=== PATIENT | male | born 1945 | race Caucasian/White ===

== ENCOUNTER 2023-12-23 06:08 | Inpatient (IN) | payer MEDICARE, OTHER, SELFPAY ==
--- NOTE | 2023-11-16 12:22 | CM ---
Patient is scheduled for an elective L THR on 12/23/23. Spoke with patient's prior to surgery via telephone. Introduced role of Orthopedic Navigator. Patient reports that she and patient live in a two story home. There is one step to enter and a
flight of steps to the second floor. There is a stair glide on the steps to the second floor which patient uses. He currently functions independently but has short term memory and processing difficulties (residual deficits from a prior CVA). He has
a cane and raised toilet seat. He was receiving services through [facility] at home at the time of our conversation. PCP is Dr. Kevyn Raygoza.
Discussed orthopedic program and post surgical plans. Reviewed anticipated length of stay and that goal is for patient to return home at discharge. Also reviewed additional DME he will need. She is in agreement with tentative plan and would like
patient to receive [facility]. She will be home with patient and can assist if needed.
Patient will complete online education.
Plan: Orthopedic Navigator will remain available to assist with the care of patient and will reassess discharge needs after surgery.
[2023-11-29 12:33] VITALS: BMI 32.6
[2023-11-29 14:29] LABS: Hematocrit 45.3 % (39.0-52.0); Hemoglobin 14.3 g/dL (13.0-18.0); Mean Corp Hgb Conc. 31.6 g/dL (33.0-37.0); Mean Corpuscular Hgb 28.8 pg (27.0-31.0); Mean Corpuscular Volume 91.1 fL (80.0-94.0); Mean Platelet Volume 10.1 fL (7.4-10.4); Platelet Count 259 10^3/uL (130-400); Red Blood Cell Count 4.97 10^6/uL (4.70-6.10); Red Cell Dist. Width 14.7 % (11.5-14.5); White Blood Cell Count 8.1 10^3/uL (4.8-10.8)
[2023-11-29 14:53] LABS: ALT (SGPT) 22 U/L (0-50); AST (SGOT) 33 U/L (17-59); Albumin 4.3 g/dl (3.5-5.0); Alkaline Phosphatase 93 U/L (38-126); Blood Urea Nitrogen 22 mg/dl (9-20); Calcium 9.8 mg/dl (8.4-10.2); Carbon Dioxide 27 mmol/L (22-30); Chloride 102 mmol/L (98-107); Estimated Creatinine Clearance 81 ml/min; Glucose 109 mg/dl (70-99); Potassium 4.5 mmol/L (3.5-5.1); Sodium 140 mmol/L (135-145); Total Bilirubin 0.6 mg/dl (0.2-1.3); Total Protein 6.8 g/dl (6.3-8.2); eGFR > 60.00
[2023-11-29 14:54] LABS: Glycohemoglobin (HgbA1c) 6.4 % (4.0-5.6)
[2023-11-29 16:28] VITALS: BMI 32.6
[2023-12-23] VITALS (23 sets, daily range): BP systolic 95–141; BP diastolic 61–91; PULSE 97; O2SAT 96; BMI 32.6
[2023-12-23] MEDS: NORMOSOL-R 1000 IV ×2 (08:51→16:11)
[2023-12-23] MEDS: TYLENOL 650 MG PO ×2 (08:52→21:49)
[2023-12-23] MEDS: CELEBREX 200 MG PO (08:52)
--- NOTE | 2023-12-23 11:59 | OR.RPT ---
Operative Report
Operative Report
Orthopaedic Surgery Operative Note
DATE OF OPERATION: 12/23/2023
PREOPERATIVE DIAGNOSES: Osteoarthritis, left hip
POSTOPERATIVE DIAGNOSES: Same
OPERATION PERFORMED: Left total hip arthroplasty.
SURGEON: Lucian Koehler MD
BEEF BREAKER: Kristin Ewing PA-C who helped with patient and limb positioning and retraction
ANESTHESIA: General after attempted spinal
COMPLICATIONS: None.
ESTIMATED BLOOD LOSS: 50 mL.
DRAINS: None
SPECIMEN: None
FINDINGS: Advanced articular cartilage wear on the femoral head and acetabulum.
IMPLANTS:
Ruperto Trilogy Acetabular Shell, cluster hole, size 56
Ruperto Trilogy Highly Crosslinked PE Liner, neutral
Ruperto M/L Taper femoral stem, size 12.5 with standard neck length and standard offset
Biolox Ceramic Head, size 36mm +0
INDICATIONS: The patient presented to my office with debilitating left hip pain due to osteoarthritis. We reviewed the natural history of this problem, as well as the risks, benefits, and alternatives of various treatment options. The patient
exhausted all nonoperative treatment options and wished to proceed with hip replacement surgery. The patient understood the risks which included, but were not limited to, bleeding, infection, failure to relieve pain, more pain than preop, damage to
blood vessels and nerves, need for reoperation, mechanical failure of the implants, wound healing problems, stiffness, instability, blood clot, pulmonary embolism, myocardial infarction, pneumonia, arrhythmia, CVA, and . The patient accepted
these risks and wished to proceed. All questions were answered, and informed consent was obtained.
PROCEDURE IN DETAIL: The patient was identified in the preoperative holding area. The left hip was identified as the operative site. The patient was taken in the operating room and transferred to the operative table. General anesthesia was
performed. IV antibiotics and tranexamic acid were administered. The patient was placed in the lateral position with Stulberg hip positioners. Axillary roll was placed. The down leg was well padded. All bony prominences were well padded. The
operative limb was prepped and draped in the usual sterile fashion.
Time out was performed. A posterolateral approach to the hip was used. The skin incision was centered over the greater trochanter. This was taken down sharply through subcutaneous tissues. Meticulous hemostasis was achieved throughout the case with
electrocautery. We split the fascia nena in line with skin incision. I split the gluteus jake bluntly. We cauterized all crossing vessels as we split it. I palpated the sciatic nerve and made sure it was well posterior in the operative field. It
was protected throughout the case.
I performed a partial bursectomy to identify the short external rotators. The gluteus medius and minimus were identified and retracted anteriorly. I incised the piriformis tendon and conjoint tendon at their insertions. These were tagged for later
repair. I then performed a trapezoidal capsulotomy. The edges were tagged for later repair. I referenced the cut edge of the capsular flap to 2 fixed points on the greater trochanter for assistance with recreation of limb length and offset. I then
dislocated the hip posteriorly. I performed a femoral neck osteotomy approximately 5 mm above the lesser trochanter, as per preoperative templating. The femoral head measured 51 mm in outer diameter. The distance between the neck cut and center of
the femoral head was measured to be 37.5mm. I placed a curve hohmann retractor over the anterior lip of the acetabulum between the labrum and the anterior hip capsule. A second retractor was placed inferiorly just distal to the transverse acetabular
ligament. Circumferential view of the acetabulum was achieved. I incised the labrum and pulvinar with electrocautery. I started with a 51 mm reamer and reamed down to the medial wall. I then sequentially reamed up to a 55mm reamer. This gave a nice
bed of bleeding bone with excellent column support anteriorly and posteriorly. I impacted the acetabular shell in approximately 40 degrees of abduction and 20 degrees of anteversion. I matched the anteversion of the transverse acetabular ligament. I
also made sure that the anterior rim of the socket was not proud of the anterior wall to minimize the chance of iliopsoas tendinitis. I confirmed the cup was well-seated. I then impacted a neutral liner and confirmed it was well seated with the
locking mechanism.
On the femoral side, I use a box osteotome to open the proximal starting point. I found the canal with a Charnley awl and a lateralizing reamer. I then used the Ruperto M/L taper broaches sequentially to prepare the femoral canal. The size 12.5 came
to a stop at the desired level and had excellent axial and rotational stability. We trialed with a trial ball head. The hip was taken through a complete range of motion. It was noted to be stable in extension without impingement. It was stable in
the position of sleep and in flexion with internal rotation. The limb length and offset were checked compared to the capsular flap and was appropriate. The measured length between the neck cut and center of the femoral head was 40mm.
I removed the trials. I impacted the femoral implant to match the [place] version. It had excellent axial and rotational stability. Trial ball head was placed, and I reduced the hip and took the hip through a complete range of motion. There was no
impingement in external rotation and extension. Position of sleep was stable. At 90 degrees of flexion and slight adduction, the hip could be internally rotated to 90 degrees with no subluxation. I palpated the sciatic nerve, which was tension free
and unharmed. Based on our capsular flap measurement, we had restored the offset and leg length. The trial ball head was removed, and the final ball head was impacted onto a clean and dry Reyes taper. The hip was reduced.
A dilute betadine soak was performed for approximately 3 minutes, and then the hip was copiously irrigated. I repaired the capsule, piriformis, and conjoint tendon with #2 Ethibond to drill holes in the greater trochanter. Local anesthetic was
injected. The fascia nena was closed with #1 PDS in running fashion. The subcutaneous tissues were closed with 2-0 PDS in running fashion. The skin was reapproximated with 3-0 Monocryl subcuticular suture. I placed a Prineo dressing followed by a
Mepilex Ag dressing. The patient awoke from anesthesia without difficulty. Sponge and instrument counts were correct x2 at the end of the case.
I was present and participated in the entire procedure. I checked leg length at the ankles after transfer on the bed which was equal. The patient was sent to the recovery room in stable condition.
Wes Koehler MD
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
[2023-12-23] MEDS: DILAUDID 0.25 MG IV ×2 (12:49→12:56)
--- NOTE | 2023-12-23 16:55 | PTCARENOTE ---
Pt received from the PACU via bed. Transport was w/o incident. Pt is AAOx3, HR irreg. Pt is afib on the monitor. HR 90's to low 100's. VSS, Pt is afebrile. Pt denies pain or nausea at this time. Right hip with Mepilex C/D/I, no drainage noted. Pt
instructed on plan of care, pt verbalized understanding of instructions. Call puentes is within reach.
[2023-12-23] MEDS: TYLENOL PO (19:54)
[2023-12-23] MEDS: SENOKOT PO (21:48)
[2023-12-23] MEDS: PROSCAR 5 MG PO (21:49)
[2023-12-23] MEDS: COLACE 100 MG PO (21:49)
[2023-12-23] MEDS: FLOMAX 0.400000000000000022 MG PO (21:49)
[2023-12-23] MEDS: ASPIR LOW (ENTERIC COATED) 81 MG PO (21:49)
[2023-12-23] MEDS: ZYRTEC 10 MG PO (21:50)
[2023-12-23] MEDS: LIPITOR 40 MG PO (21:50)
[2023-12-23] MEDS: EFFEXOR XR 75 MG PO (21:50)
[2023-12-23] MEDS: PEPCID 20 MG PO (21:50)
[2023-12-23] MEDS: ANCEF 5 IV (22:00)
[2023-12-23] MEDS: BACTROBAN 2% OINTMENT 1 APPLIC NASAL (22:10)
[2023-12-23] MEDS: XARELTO 10 MG PO (22:10)
[2023-12-24] VITALS (8 sets, daily range): BP systolic 108–154; BP diastolic 63–85; PULSE 104–117; O2SAT 94
[2023-12-24] MEDS: TYLENOL 650 MG PO ×6 (00:04→22:13)
[2023-12-24] MEDS: ANCEF 5 IV (03:41)
[2023-12-24] MEDS: ROXICODONE 2.5 MG PO (06:21)
[2023-12-24] MEDS: ASPIR LOW (ENTERIC COATED) 81 MG PO (08:38)
[2023-12-24] MEDS: COLACE 100 MG PO ×2 (08:38→20:39)
[2023-12-24] MEDS: SENOKOT 17.1999999999999993 MG PO (08:38)
[2023-12-24] MEDS: CARDIZEM CD 120 MG PO (08:39)
[2023-12-24] MEDS: VITAMIN D3 (cholecalciferol) 50 MCG PO (08:39)
--- NOTE | 2023-12-24 08:39 | CM ---
Addendum entered by Felicity Butler 12/24/23 14:40:
Patient is not medically cleared for discharge. Ena at [facility] notified and start of care changed to 12/25.
IMM reviewed and signed by patient's .
Original Note:
Reviewed chart and held rounds with PT, OT and nursing. Patient admitted as planned for elective L THR. Met with patient, his and daughter at bedside. Confirmed information previously obtained for assessment. Also discussed discharge plans. The
plan is for patient to return home at discharge. He will have support from his when he goes home. Reviewed VN services including start of care (tentatively 12/24), services to be ordered (PT, OT) and frequency/duration of services. They have had
services through [facility] and select them again.
Patient has a rolling walker, raised toilet seat with rails, stair glide, hip kit, firm cushion and a cane at home.
VN referral was completed and sent to [facility] through [employer] with request for start of care on 12/24. Script also faxed. Confirmation received of their ability to accept case. distribution clerk to fax discharge instructions to [facility] when complete. .
Patient will use [facility] for discharge prescriptions.
[2023-12-24] MEDS: BACTROBAN 2% OINTMENT 1 APPLIC NASAL ×2 (08:40→20:39)
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
[2023-12-24] MEDS: LIDOCAINE 4% PATCH 2 PATCH TOPICAL (09:55)
[2023-12-24] MEDS: NEURONTIN 200 MG PO ×3 (09:55→22:15)
[2023-12-24 10:55] LABS: Hematocrit 39.2 % (39.0-52.0); Hemoglobin 12.8 g/dL (13.0-18.0); Mean Corp Hgb Conc. 32.7 g/dL (33.0-37.0); Mean Corpuscular Hgb 28.8 pg (27.0-31.0); Mean Corpuscular Volume 88.3 fL (80.0-94.0); Mean Platelet Volume 9.9 fL (7.4-10.4); Platelet Count 248 10^3/uL (130-400); Red Blood Cell Count 4.44 10^6/uL (4.70-6.10); Red Cell Dist. Width 14.8 % (11.5-14.5); White Blood Cell Count 18.7 10^3/uL (4.8-10.8)
[2023-12-24 11:08] LABS: Blood Urea Nitrogen 21 mg/dl (9-20); Calcium 9.2 mg/dl (8.4-10.2); Carbon Dioxide 25 mmol/L (22-30); Chloride 106 mmol/L (98-107); Estimated Creatinine Clearance 90 ml/min; Glucose 147 mg/dl (70-99); Potassium 4.5 mmol/L (3.5-5.1); Sodium 138 mmol/L (135-145); eGFR > 60.00
--- NOTE | 2023-12-24 11:30 | W.PN.UPDATE ---
Update Note
Progress Note Update
Given high HRs in the setting of a fib with his h/o orthostasis, will consult Cardiology for further assistance in rate management.
EKG demonstrates a fib w/ RVR. HRs currently 100-120s at rest and up to 140s with activity.
He is currently asymptomatic and denies new complaints when asked.
Labs: WBC elevated at 18.7, likely in the setting of surgical stress and IV steroid use in OR yesterday. Will trend. As stated previously, pt is asymptomatic and afebrile.
All other labs WNL.
Will observe overnight on newly added Amiodarone. Surgeon updated.
Did discuss resumption of home Xarelto dosing with surgeon as well.
Original plan was to resume Xarelto 20 mg on POD 3.
Given his discharge is now likely tomorrow, he may go back on his home Xarelto dosing as early as tomorrow.
[2023-12-24] MEDS: ROXICODONE 5 MG PO (11:59)
--- NOTE | 2023-12-24 13:00 | PTCARENOTE ---
Patient heart rate this am on tele was 140-150. Anupama CARMEN made aware. Cardiology consulted and medications adjusted. Patient remains on tele.
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
[2023-12-24] MEDS: PACERONE 200 MG PO (13:22)
[2023-12-24] MEDS: XARELTO 10 MG PO (17:54)
[2023-12-24] MEDS: FLOMAX 0.400000000000000022 MG PO (17:54)
[2023-12-24] MEDS: SENOKOT PO (20:40)
[2023-12-24] MEDS: PACERONE 400 MG PO (20:56)
[2023-12-24] MEDS: ZYRTEC 10 MG PO (22:15)
[2023-12-24] MEDS: EFFEXOR XR 75 MG PO (22:15)
[2023-12-24] MEDS: PROSCAR 5 MG PO (22:15)
[2023-12-24] MEDS: PEPCID 20 MG PO (22:15)
[2023-12-24] MEDS: LIPITOR 40 MG PO (22:15)
[2023-12-25] MEDS: TYLENOL PO ×2 (00:17→04:26)
[2023-12-25 03:40] VITALS: BP 126/74
[2023-12-25 07:08] LABS: Hematocrit 33.2 % (39.0-52.0); Hemoglobin 10.8 g/dL (13.0-18.0); Mean Corp Hgb Conc. 32.5 g/dL (33.0-37.0); Mean Corpuscular Hgb 28.9 pg (27.0-31.0); Mean Corpuscular Volume 88.8 fL (80.0-94.0); Mean Platelet Volume 10.4 fL (7.4-10.4); Platelet Count 208 10^3/uL (130-400); Red Blood Cell Count 3.74 10^6/uL (4.70-6.10); Red Cell Dist. Width 14.9 % (11.5-14.5); White Blood Cell Count 12.4 10^3/uL (4.8-10.8)
[2023-12-25 07:20] VITALS: BP 110/62
--- NOTE | 2023-12-25 08:01 | W.PN.UPDATE ---
Update Note
Progress Note Update
Mr. Watt is POD2 following his left total hip arthroplasty performed by Dr. Koehler. He is resting comfortably in bed this morning, and reports he has been feeling well. He denies any significant pain in the hip. He has been able to work with
PT without significant difficulty. He stayed overnight due to a-fib. He was started on amiodarone by cardiology. HRs have stabilized in the low 100s.
Directed exam of the left lower extremity reveals Mepilex dressing clean, dry and intact. No tenderness to palpation about the hip. Thigh soft and compressible. Calf soft and nontender. Patient able to wiggle toes, plantar and dorsiflex ankle. NVID.
Hgb 10.8 this AM.
Patient is stable for discharge home from orthopedic perspective. Will await cardiology clearance for discharge.
[2023-12-25] MEDS: CARDIZEM CD 120 MG PO (08:17)
[2023-12-25] MEDS: ASPIR LOW (ENTERIC COATED) 81 MG PO (08:17)
[2023-12-25] MEDS: SENOKOT 17.1999999999999993 MG PO (08:18)
[2023-12-25] MEDS: PACERONE 200 MG PO (08:18)
[2023-12-25] MEDS: COLACE 100 MG PO (08:19)
[2023-12-25] MEDS: LIDOCAINE 4% PATCH 2 PATCH TOPICAL (08:19)
[2023-12-25] MEDS: TYLENOL 650 MG PO (08:19)
[2023-12-25] MEDS: NEURONTIN 200 MG PO (08:19)
--- NOTE | 2023-12-25 09:21 | W.PN.UPDATE ---
Update Note
Progress Note Update
Heart rates have improved. No objection to discharge home today.
--- NOTE | 2023-12-25 09:23 | W.PN.UPDATE ---
Update Note
Progress Note Update
Heart rate has improved. No objection to discharge home today.
--- NOTE | 2023-12-25 11:18 | W.DS.TRANS ---
DC Summary - Dust Handler
-
Discharge Instructions:
Sleep Apnea Risk Intermediate
Discharge Diagnosis/Procedures L hip OA s/p L RUTH ANN w/ Dr Koehler 12/23/23
Diet Regular
Activity As tolerated,With Walker
Driving Restrictions Not until seen by your Dr
Bathing Restrictions OK to Shower
Other Services PT,OT
Wound Care Leave dressing on until seen by surgeon's office
for follow-up in 2 weeks.
Instructions:
Stand-Alone Forms: Total Hip/Knee Replacement D/C
Changes to Home Medications: Yes
Discharge Medications:
DC Medications w/original date entered in [facility]
aspirin 81 mg tablet,delayed release 81 mg PO DAILY Blood Clot Prevention/Tx 01/24/23
atorvastatin 40 mg tablet 40 mg PO HS High Cholesterol 01/24/23
diltiazem HCl 120 mg capsule,extended release 24 hr, controlled 120 mg PO DAILY Heart Disease/Condition 01/24/23
finasteride 5 mg tablet 5 mg PO DAILY Urinary Issue 01/24/23
multivitamin 1 cap PO DAILY Supplement 01/24/23
tamsulosin 0.4 mg capsule 0.4 mg PO QPM Urinary Issue 01/24/23
Green Lipped Muscle 1 tab PO DAILY Supplement 11/23/23
ascorbic acid (vitamin C) 500 mg tablet (Vitamin C) 500 mg PO DAILY Supplement 11/23/23
cetirizine 10 mg tablet 10 mg PO HS Allergies 11/23/23
cholecalciferol (vitamin D3) 50 mcg (2,000 unit) tablet (Vitamin D3) 50 mcg PO Q48H Supplement 11/23/23
magnesium 200 mg tablet 400 mg PO Q48H Electrolyte Repletion 11/23/23
meclizine 25 mg tablet 25 mg PO Q8HPRN PRN dizziness 11/23/23
venlafaxine 75 mg tablet 75 mg PO HS Neurological Condition 11/23/23
vitamin B complex 1 tab PO DAILY Supplement 11/23/23
mupirocin 2 % topical ointment 1 applic intranasal BID #1 tube 11/29/23
acetaminophen 500 mg tablet 1,000 mg (2 x 500 mg) PO Q6H Pain #0 tabs 12/24/23
amiodarone 200 mg tablet (Pacerone) 200 mg PO BID #60 tabs 12/24/23
docusate sodium 100 mg capsule 100 mg PO BID #30 caps 12/24/23
famotidine 20 mg tablet 20 mg PO HS #30 tabs 12/24/23
gabapentin 100 mg capsule 200 mg (2 x 100 mg) PO TID neuropathic pain #30 caps 12/24/23
lidocaine 4 % topical patch 2 patch topical DAILY #30 ea 12/24/23
oxycodone 5 mg tablet 5 - 10 mg (1 - 2 x 5 mg) PO Q6H PRN moderate-severe pain #30 tabs 12/24/23
rivaroxaban 20 mg tablet (Xarelto) 20 mg PO QPM Blood Clot Prevention/Tx #0 tabs 12/24/23
sennosides 8.6 mg tablet (Senna Laxative) 17.2 mg (2 x 8.6 mg) PO BID #30 tabs 12/24/23
Home Medication Changes
Pending Results: No
[2023-12-25 11:30] VITALS: BP 111/72
--- NOTE | 2023-12-25 12:14 | CM ---
CM following re: discharge planning.
Reviewed pt's chart, met with pt.
Discharge order noted. Pt is aware, expressed his agreement with discharge. IMM reviewed, placed in chart, pt has a copy.
Pt stated his spouse will transport home and he will resume [facility].
[facility] .
D/C plan: home with [facility] and family support. Spouse to transport.
== END 2023-12-25 15:05 | disposition home health service (06) | DRG 470 ==
LOC: 2 SOUTH 06:08
PROVIDERS: Physician Assistant; ADMITTING PHYSICIAN Orthopaedic Surgery; FAMILY PHYSICIAN Internal Medicine
PROC: 0SRB04Z Replacement of Left Hip Joint with Ceramic on Polyethylene Synthetic Substitute, Open Approach (ICD-10-PCS; 2023-12-23)
DX: M16.12 Unilateral primary osteoarthritis, left hip (principal); I10 Essential (primary) hypertension; E78.00 Pure hypercholesterolemia, unspecified; I48.0 Paroxysmal atrial fibrillation; I71.20 Thoracic aortic aneurysm, without rupture, unspecified; I95.1 Orthostatic hypotension; G47.33 Obstructive sleep apnea (adult) (pediatric); I37.1 Nonrheumatic pulmonary valve insufficiency; I34.0 Nonrheumatic mitral (valve) insufficiency; K21.9 Gastro-esophageal reflux disease without esophagitis; K44.9 Diaphragmatic hernia without obstruction or gangrene; N40.0 Benign prostatic hyperplasia without lower urinary tract symptoms; F32.A Depression, unspecified; H91.93 Unspecified hearing loss, bilateral; E66.9 Obesity, unspecified; R73.03 Prediabetes; Z91.199 Patient's noncompliance with other medical treatment and regimen due to unspecified reason; Z86.010 Personal history of colon polyps; Z68.32 Body mass index [BMI] 32.0-32.9, adult; Z87.19 Personal history of other diseases of the digestive system; Z87.828 Personal history of other (healed) physical injury and trauma
CPT/HCPCS: 36415; 73502; 80048; 80053; 83036; 85027; 87070; 93005; 97110; 97116; 97162; 97167; 97530; 97535; C1776

== ENCOUNTER → 2024-01-19 09:29 | Outpatient (REF) | payer MEDICARE, OTHER, SELFPAY ==
[2024-01-19 12:43] LABS: ALT (SGPT) 16 U/L (0-50); AST (SGOT) 29 U/L (17-59); Albumin 3.6 g/dl (3.5-5.0); Alkaline Phosphatase 114 U/L (38-126); Blood Urea Nitrogen 19 mg/dl (9-20); Calcium 9.2 mg/dl (8.4-10.2); Carbon Dioxide 31 mmol/L (22-30); Chloride 104 mmol/L (98-107); Glucose 116 mg/dl (70-99); Potassium 4.6 mmol/L (3.5-5.1); Sodium 140 mmol/L (135-145); Total Bilirubin 0.5 mg/dl (0.2-1.3); Total Protein 6.2 g/dl (6.3-8.2); eGFR > 60.00
[2024-01-19 13:07] LABS: TSH Reflex To Free T4 2.82 uIU/ml (0.47-4.68)
[2024-01-19 13:10] LABS: Ferritin 83.8 ng/ml (17.9-464.0)
[2024-01-19 13:19] LABS: Erythrocyte Sed Rate 17 mm/hour (0-20)
[2024-01-19 13:42] LABS: Folate > 20.0 ng/ml (2.76-20); Vitamin B12 518 pg/ml (239-931)
[2024-01-19 14:27] LABS: Glycohemoglobin (HgbA1c) 6.2 % (4.0-5.6)
[2024-01-21 13:18] LABS: Syphilis/T. pallidum Ab Reflex Negative (Negative)
== END ==
LOC: HWLAB 09:29
PROVIDERS: ATTENDING PHYSICIAN Psychiatry & Neurology Neurology; FAMILY PHYSICIAN Internal Medicine
DX: M16.12 Unilateral primary osteoarthritis, left hip (principal); I10 Essential (primary) hypertension; E78.5 Hyperlipidemia, unspecified; I63.40 Cerebral infarction due to embolism of unspecified cerebral artery; I69.391 Dysphagia following cerebral infarction; I48.20 Chronic atrial fibrillation, unspecified; R41.3 Other amnesia; I63.9 Cerebral infarction, unspecified; Z12.5 Encounter for screening for malignant neoplasm of prostate
CPT/HCPCS: 36415; 80053; 82607; 82728; 82746; 83036; 84443; 85652; 86780; G0103

== ENCOUNTER 2024-02-05 01:15 | Observation (INO) | payer MEDICARE, OTHER, SELFPAY ==
[2024-02-04 20:11] VITALS: BP 138/74
--- NOTE | 2024-02-04 20:45 | ED.GENMED ---
History of Present Illness
General
Chief Complaint: Musculo-Skeletal Complaint
Source: patient
Exam Limitations: none
Time Seen by Provider: 02/04/24 20:29
Nursing documentation reviewed up to this point in time: agreed with
Travel History
Have you had any contact with someone who has COVID-19?: No
Do you have any symptoms of coronavirus? Fever > 100 degrees, chills, cough, shortness of breath, sore throat, loss of taste or smell, muscle aches, or headache?: No
History of Present Illness
History of Present Illness:
Patient status post left hip replacement last month, presents to ED secondary to persistent hip pain after evaluation with his orthopedic surgeon this afternoon. Per patient and spouse, there was not significant range of motion or testing done at
the office. However, patient was sitting in an upright position for approximately 45 minutes. After orthopedic surgeon left the examination room, when he was getting off the stretcher, he felt the pain in his left hip. Patient and spouse
attributed the pain to may be having been in the same position for extended period of time. However, since going home, patient has persisted. Patient reports pain at rest, but worse with any range of motion or weightbearing. Denies fever or
chills. Denies loss of sensation or weakness.
Past History
Past History
ED Past Medical History: Arrthythmia and CVA
ED Past Surgical History: None
Patient has exhibited threatening behavior?: No
PSI?: No
Social History
Tobacco: Non-smoker
Alcohol: Occasional
Drug: None
Personal:
Living: with family
Employment: Retired
Family History
Family History: Other (Noncontributory)
Review of Systems
Review of Systems
Allergies reviewed?: Yes
All Other Systems: ROS reviewed and negative except as documented in HPI and ROS
Constitutional: Reports no symptoms
Musculoskeletal: Reports other (Hip pain)
Skin: Reports no symptoms
Neurological: Reports no symptoms
Phy Exam
Physical Exam
Physical Exam:
Physical Exam
General: moderate painful distress, not acutely ill. afebrile
Head: nc/at. eomi
Neck: supple. normal range of motion
Neuro: alert and oriented. no focal neurological deficits
Skin: no rash
Psychiatric: well kept. interactive and cooperative
Extremities: diffuse left hip tenderness to palpation, worse with minimal range of motion. no obvious deformity. well healed surgical scar noted, without swelling/erythema/warmth.
Course
Orders/Labs/Results
Orders:
Orders
02/04/24 20:42
CR Hip - LT w/wo Pel 2-3 Vw* Urgent
Comment:
Reason For Exam: pain
Include a pelvis x-ray?: Yes
02/04/24 20:43
Acetaminophen [Tylenol] 650 mg PO NOW STA
Rivaroxaban [Xarelto] 20 mg PO NOW STA
02/04/24 22:54
Ketorolac [Toradol] 15 mg IV NOW STA
diazePAM [Valium Injection] 2 mg IV NOW STA
02/05/24 00:05
HYDROmorphone [Dilaudid] 0.5 mg IV NOW STA
02/05/24 00:19
Basic Metabolic Panel Urgent
Complete Blood Count/No Diff Urgent
02/05/24 01:08
Admit/Transfer Patient As Directed
Co-Sign Provider:
Level of Care: Observation services
Assign to:: Medical/Surgical
Physician / Group: Dr. Simmons
Diagnosis: Left hip pain
02/05/24 01:10
Code Status As Directed
Resuscitation Status: Full Code
02/05/24 01:15
Consult Notification Routine
Specialty to Notify: Orthopedics
Date consulting provider notified: 02/05/24
Time consulting provider notified: 08:04
Notified:: Provider
Comment: TT Dr Koehler
ORTHOPEDIC CONSULT Routine
Consulting Provider: Lucian Koehler
Was physician already notified: No
Reason for consult: Left hip pain post L RUTH ANN
02/05/24 02:17
Bisacodyl [Dulcolax] 10 mg RECTAL [id number] PRN
Docusate W/Senna [Senokot-S] 1 tablet PO BIDPRN PRN
Meclizine [Antivert] 25 mg PO Q8HPRN PRN
02/05/24 02:17
Activity As Directed
Activity Level: Out of Bed-Early Mobility
Vital Signs As Directed
Frequency: Per unit guidelines
02/05/24 Breakfast
Cholesterol Lowering
At Your Request: Full Participation
Cholesterol Lowering: Sodium, 2 Gram
02/05/24 07:24
Basic Metabolic Panel Routine
Complete Blood Count/With Diff Routine
02/05/24 08:00
Acetaminophen [Tylenol] 1,000 mg PO TID
Amiodarone [Pacerone] 200 mg PO DAILY
Cholecalciferol (Vitamin D3) [VITAMIN D3 (cholecalciferol)] 50 mcg PO Q48H
Diltiazem Extended Release [Cardizem Cd] 120 mg PO DAILY
Famotidine [Pepcid] 10 mg PO DAILY
Finasteride [Proscar] 5 mg PO DAILY
Gabapentin [Neurontin] 200 mg PO TID
Magnesium Oxide 500 mg PO Q48H
Polyethylene Glycol Powder [Miralax] 17 grams PO DAILY
02/05/24 18:00
Atorvastatin [Lipitor] 40 mg PO QPM
Rivaroxaban [Xarelto] 20 mg PO QPM
Tamsulosin [Flomax] 0.4 mg PO QPM
Abnormal Lab Results
02/05/24
00:19
WBC 14.1 H 10^3/uL
(4.8-10.8)
RBC 3.79 L 10^6/uL
(4.70-6.10)
Hgb 10.8 L g/dL
(13.0-18.0)
Hct 33.7 L %
(39.0-52.0)
MCHC 32.0 L g/dL
(33.0-37.0)
RDW 14.6 H %
(11.5-14.5)
Glucose 116 H mg/dl
(70-99)
02/05/24 00:19
02/05/24 00:19
Vital Signs
Initial and Last Documented VS:
Initial Vital Signs
Temp Pulse Resp BP Pulse Ox
98.2 F 87 20 138/74 96
02/04/24 20:11 02/04/24 20:11 02/04/24 20:11 02/04/24 20:11 02/04/24 20:11
Last Documented Vital Signs
Temp Pulse Resp BP Pulse Ox
97.7 F 90 14 93/62 92
02/05/24 23:00 02/05/24 23:00 02/05/24 23:00 02/05/24 23:00 02/05/24 23:00
MDM/Problems Addressed
MDM/Problems Addressed:
Patient with persistent pain despite receiving multiple pain medications. X-ray without any acute findings. Possible muscle spasm versus occult fracture. Patient however remains neurologically intact, without any obvious deformity or any evidence
of infection. Patient will be admitted for further eval treatment, including better pain control, along with potential further imaging studies, if symptoms persist.
*Critical Care Note
Total Time (30-74mins, 75-104mins- exclusive of procedures): Not Applicable
ED Attending Note
-
Portions of this chart may have been created with voice recognition software.� Occasional wrong word or��sound alike� substitutions may have occurred due to the inherent limitations of voice recognition software.
Discharge Plan
Departure
Patient Disposition: Admit
Date of Disposition: 02/05/24
Time of Disposition: 00:21
Presentation/result/management discussed w/ accepting MD/DO: Hospitalist
Discharge Problem:
Intractable hip pain
Interventions
Interventions:
*Risk Screen - Suicide Last Done: 02/05/24 02:21
*General Assessment Last Done: 02/04/24 22:04
*Neglect/Abuse Screening Last Done: 02/04/24 22:04
ED- Fall Risk Assessment Last Done: 02/05/24 00:28
*ED COVID-19 Vaccine History Last Done: 02/05/24 02:21
*Nursing Disposition Last Done: 02/05/24 02:05
ED-Musculoskeletal Assessment Last Done: 02/04/24 22:15
Discharge Date and Time
Discharge Date/Time: 02/05/24 02:05
[2024-02-04] MEDS: TYLENOL 650 MG PO (21:58)
[2024-02-04] MEDS: XARELTO 20 MG PO (21:58)
[2024-02-04 22:05] VITALS: BP 125/68
[2024-02-04 22:58] VITALS: BMI 31.1
[2024-02-04 23:00] VITALS: BP 140/88
[2024-02-04] MEDS: TORADOL 15 MG IV (23:07)
[2024-02-04] MEDS: VALIUM INJECTION 2 MG IV (23:09)
[2024-02-05] VITALS (7 sets, daily range): BP systolic 109–140; BP diastolic 65–91; PULSE 80; O2SAT 95; BMI 30.6
[2024-02-05] MEDS: DILAUDID 0.5 MG IV (00:20)
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
[2024-02-05 00:39] LABS: Hematocrit 33.7 % (39.0-52.0); Hemoglobin 10.8 g/dL (13.0-18.0); Mean Corpuscular Hgb 28.5 pg (27.0-31.0); Mean Corpuscular Volume 88.9 fL (80.0-94.0); Mean Platelet Volume 9.8 fL (7.4-10.4); Platelet Count 294 10^3/uL (130-400); Red Blood Cell Count 3.79 10^6/uL (4.70-6.10); Red Cell Dist. Width 14.6 % (11.5-14.5); White Blood Cell Count 14.1 10^3/uL (4.8-10.8)
[2024-02-05 00:49] LABS: Blood Urea Nitrogen 20 mg/dl (9-20); Calcium 9.1 mg/dl (8.4-10.2); Carbon Dioxide 26 mmol/L (22-30); Chloride 106 mmol/L (98-107); Estimated Creatinine Clearance 112 ml/min; Glucose 116 mg/dl (70-99); Potassium 4.6 mmol/L (3.5-5.1); Sodium 137 mmol/L (135-145); eGFR > 60.00
[2024-02-05] MEDS: FLEXERIL 10 MG PO (01:32)
--- NOTE | 2024-02-05 01:34 | EDRN ---
Pt reports no change in pain level after toradol IV, Valium IV, dilaudid IV and tylenol PO.
[2024-02-05] MEDS: ROXICODONE 5 MG PO (02:56)
--- NOTE | 2024-02-05 07:38 | PTCARENOTE ---
0715 Patient calling out from room, patient found on the floor. pt states oob to bathroom to void, when leaving bathroom patient states he didn't have anything to hold on to and fell. fall was unwitnessed, pt states he 'thinks he hit the back of his
head a little but not hard', patient denies pain. MD being notified by Tahira ESTRADA. VS [id number]. nursing visual supervisor notified
--- NOTE | 2024-02-05 07:50 | PTCARENOTE ---
Patient fell walking back from the bathroom. Patient thinks he hit his head. Patient has no c/o pain anywhere at present. Bed alarm placed on bed, patient made aware to call for staff before getting OOB, patient verbalized understanding. Physician
notified, order for CT head.
[2024-02-05 08:23] LABS: % Basophils 0.4 % (0-2); % Eosinophils 1.1 % (0-6); % Immature Granulocytes 0.8 % (0-0.5); % Lymphocytes 11.8 % (20.5-51.1); % Monocytes 10.8 % (1.7-9.3); % Neutrophils 75.1 % (42.2-75.2); Absolute Eosinophils 0.1 10^3/uL (0-0.7); Absolute Immature Granulocytes 0.1 10^3/uL (0-0.05); Absolute Lymphocytes 1.2 10^3/uL (1.2-3.4); Absolute Monocytes 1.1 10^3/uL (0.1-0.6); Absolute Neutrophils 7.5 10^3/uL (1.4-6.5); Hematocrit 34.5 % (39.0-52.0); Hemoglobin 10.8 g/dL (13.0-18.0); Mean Corp Hgb Conc. 31.3 g/dL (33.0-37.0); Mean Corpuscular Hgb 27.9 pg (27.0-31.0); Mean Corpuscular Volume 89.1 fL (80.0-94.0); Mean Platelet Volume 9.7 fL (7.4-10.4); Nucleated Red Blood Cells % 0 % (-); Platelet Count 319 10^3/uL (130-400); Red Blood Cell Count 3.87 10^6/uL (4.70-6.10); Red Cell Dist. Width 14.8 % (11.5-14.5)
[2024-02-05 09:02] LABS: Blood Urea Nitrogen 20 mg/dl (9-20); Calcium 9.3 mg/dl (8.4-10.2); Carbon Dioxide 23 mmol/L (22-30); Chloride 103 mmol/L (98-107); Estimated Creatinine Clearance 86 ml/min; Glucose 151 mg/dl (70-99); Potassium 4.2 mmol/L (3.5-5.1); Sodium 138 mmol/L (135-145); eGFR > 60.00
[2024-02-05] MEDS: MIRALAX 17 GRAMS PO (09:55)
[2024-02-05] MEDS: CARDIZEM CD 120 MG PO (09:55)
[2024-02-05] MEDS: TYLENOL 1000 MG PO ×3 (09:55→22:25)
[2024-02-05] MEDS: PACERONE 200 MG PO (09:55)
[2024-02-05] MEDS: MAGNESIUM OXIDE 500 MG PO (09:55)
[2024-02-05] MEDS: LIDOCAINE 4% PATCH 1 PATCH TOPICAL (09:56)
[2024-02-05] MEDS: NEURONTIN 200 MG PO ×3 (09:56→22:25)
[2024-02-05] MEDS: PEPCID 10 MG PO (09:56)
[2024-02-05] MEDS: PROSCAR 5 MG PO (09:56)
[2024-02-05] MEDS: VITAMIN D3 (cholecalciferol) 50 MCG PO (09:57)
--- NOTE | 2024-02-05 10:05 | W.PN.UPDATE ---
Update Note
Progress Note Update
Patient seen and examined after post midnight admission. No new complaints. Vital signs stable. No acute distress, awake and alert. Regular rate and rhythm, normal S1-S2. Clear to auscultation bilaterally. Left hip is tender to palpation. No
ecchymoses. Orthopedics to see. Continue plan as outlined in the H&P done earlier today.
--- NOTE | 2024-02-05 11:01 | PTCARENOTE ---
Patient drowsy and falling asleep while RN is talking to him. Patient states, 'My whole left leg hurts.' Patient able to turn self, but
c/o pain when left hip is palpated. Lidocaine patch & ice applied to left hip. Call puentes in reach, bed alarm maintained.
--- NOTE | 2024-02-05 13:45 | CON.ORTHO ---
Consultation
-
Date/Time Consultation Requested: 02/05/2024 0801
Date/Time Consultation Performed: 02/05/2024 1215
Requesting Provider: Tahira Collins
Performing Provider: Wes Koehler
Reason for Consultation: Left hip pain
Consultation - Orthopedics
History
Orthopedic Surgery Note
CC: Left hip pain
HPI: 78-year-old male with a history of left hip replacement with me 12/23/2023 about 6 weeks ago. The patient was seen in the office by me yesterday afternoon on 02/04/2024. At that time he was doing well and progressing with physical therapy as
expected. He was sitting in the exam room he states for about 45 minutes on the exam table with the hip flexed. He states that when he got up off the exam table he started noticing pain in the left hip. He was ambulating with a walker and when he
went home and continued to have hip pain and presented to the emergency department. He was admitted for further evaluation. He denies a fall or an injury precipitating his left hip pain. He denies fevers or chills. He has no pain at rest. He
has pain with active weightbearing primarily laterally about the leg. He reports that the was having some pain yesterday evening that radiated down the entire leg. He has a history of lumbar stenosis.
PMH/PSH: afib, h/o stroke, HTN, HL, GERD, BPH, lyme, CECY, preDM, depression, h/o L RUTH ANN
Medications: reviewed
Family History: Family history was reviewed. Noncontributory
Social history: former smoker, lives with spouse
Exam
General appearance: Pleasant. No acute distress.
Head: Normocephalic/atraumatic
Nose: No lesions or discharge.
Skin: No obvious rashes or open wounds
Lungs: Cough with some audible rattling
Musculoskeletal:
LLE:
incision healed without surrounding erythema or drainage
painless passive hip motion about groin and thigh
tender to palpation about trochanteric region and itb laterally
able to perform straight leg raise with pain laterally
fires ehl/fhl/ta/gs
sensation intact to light touch distally s/s/sp/dp/t
Toes wwp
Imaging:
Pelvis and left hip x-rays performed 02/04/2024 reviewed by me. These show well-fixed well aligned left total hip arthroplasty. No interval change in prosthetic component positioning. No signs of periprosthetic fracture. No signs of pelvic ring
injury. No signs of femoral subsidence or change in acetabular component positioning.
Assessment and plan: 78-year-old male 6 weeks after left total hip arthroplasty. He is reporting 1 day of increased pain after sitting on exam table for about 45 minutes. His pain is primarily lateral and is tender over the IT band to palpation.
It is likely the etiology of his pain is soft tissue related from the iliotibial band. His x-rays fortunately do not show prosthetic complications. Low concern for prosthetic joint infection. His incision is well-healed. We discussed pain
control and working with physical therapy. We discussed fall precautions with a walker and transitioning to the cane as able. He was starting to transition to a cane yesterday with physical therapy but was noted to have a fall today when he tried
to ambulate to the bathroom without an assist device. He denies falling on the left hip. He reports that his left hip is feeling better with the pain medication and he has no pain at rest. He may follow-up with me in the office after discharge to
assess his progress. All questions were answered.
Wes Koehler MD
> 75 minutes was spent reviewing the clinical information, evaluating the patient, and formulating clinical plan.
Allergies / Home Medications
Allergy/AdvReac Type Severity Reaction Status Date / Time
pollen extracts Allergy havfever/co Verified 02/04/24 20:14
ngestion
�Medication �Instructions �Recorded
atorvastatin 40 mg tablet 40 mg PO QPM High Cholesterol 01/24/23
diltiazem HCl 120 mg 120 mg PO DAILY Heart 01/24/23
capsule,extended release 24 hr, Disease/Condition
controlled
finasteride 5 mg tablet 5 mg PO DAILY Urinary Issue 01/24/23
multivitamin 1 cap PO DAILY Supplement 01/24/23
tamsulosin 0.4 mg capsule 0.4 mg PO QPM Urinary Issue 01/24/23
ascorbic acid (vitamin C) 500 mg 500 mg PO DAILY Supplement 11/23/23
tablet (Vitamin C)
cetirizine 10 mg tablet 10 mg PO HS Allergies 11/23/23
cholecalciferol (vitamin D3) 50 50 mcg PO Q48H Supplement 11/23/23
mcg (2,000 unit) tablet (Vitamin
D3)
magnesium 200 mg tablet 400 mg PO Q48H Electrolyte 11/23/23
Repletion
meclizine 25 mg tablet 25 mg PO Q8HPRN PRN dizziness 11/23/23
vitamin B complex 1 tab PO DAILY Supplement 11/23/23
gabapentin 100 mg capsule 200 mg (2 x 100 mg) PO TID 12/24/23
neuropathic pain #30 caps
rivaroxaban 20 mg tablet (Xarelto) 20 mg PO QPM Blood Clot 12/24/23
Prevention/Tx #0 tabs
acetaminophen 500 mg tablet 1,000 mg PO TID Pain 02/05/24
amiodarone 200 mg tablet (Pacerone) 200 mg PO DAILY 02/05/24
famotidine 10 mg tablet (Pepcid AC) 10 mg PO DAILY 02/05/24
Vital Signs / Lab Results
Temp Pulse Resp BP Pulse Ox
98 F 126 16 131/83 95
02/05/24 07:33 02/05/24 07:33 02/05/24 07:33 02/05/24 07:33 02/05/24 07:33
02/05/24 07:24
02/05/24 07:24
[2024-02-05] MEDS: SENOKOT-S 1 TABLET PO (14:52)
--- NOTE | 2024-02-05 16:10 | CM ---
Addendum entered by Isadora Villagomez 02/05/24 16:24:
Pharm correction - [facility]
Original Note:
Met with pt and his at bedside
Pt lives with his in a 2 story home. Has stair glide to 2nd fl
Ambulates with a rolling walker, performs adl's, prepares meals
DME - rolling walker, elevated toilet seat, commode, cane, stair glide
SNF - denies
HH - current with [facility]
Has ride at d/c
PCP - Dr Raygoza
Pharm - [facility]
Discussed [facility]
PT/OT recommending HH - current with [facility] - will send referral for [facility]
Plan - home with [facility]
[2024-02-05] MEDS: FLOMAX 0.400000000000000022 MG PO (16:51)
[2024-02-05] MEDS: XARELTO 20 MG PO (16:51)
[2024-02-05] MEDS: LIPITOR 40 MG PO (16:51)
[2024-02-06 07:00] VITALS: BP 137/65
[2024-02-06 09:32] VITALS: BP 137/72; PULSE 90; O2SAT 95
[2024-02-06] MEDS: PACERONE 200 MG PO (10:14)
[2024-02-06] MEDS: NEURONTIN 200 MG PO (10:14)
[2024-02-06] MEDS: CARDIZEM CD 120 MG PO (10:14)
[2024-02-06] MEDS: TYLENOL 1000 MG PO (10:15)
[2024-02-06] MEDS: PROSCAR 5 MG PO (10:15)
[2024-02-06] MEDS: PEPCID 10 MG PO (10:15)
[2024-02-06] MEDS: MIRALAX 17 GRAMS PO (10:16)
[2024-02-06] MEDS: LIDOCAINE 4% PATCH 1 PATCH TOPICAL (10:16)
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
--- NOTE | 2024-02-06 11:30 | CM ---
Case Management following for d/c planning
Pt referred to [facility] for home care needs - [facility]
Family to transport home at d/c
Plan - anticipate home with [facility]
Fax - [phone]
--- NOTE | 2024-02-06 14:38 | W.DS.TRANS ---
Addendum entered and electronically signed by Wagner Parikh MD 02/07/24 16:17:
Dictation- [id number]
Original Note:
DC Summary - Technical Support Manager
-
Discharge Instructions:
Discharge Diagnosis/Procedures Left hip pain, cough, atrial fibrillation,
hypertension, hyperlipidemia, prediabetes, GERD,
enlarged prostate, history of stroke and
cervical spine fracture, depression
Diet As tolerated
Activity As tolerated,With assistance
Driving Restrictions As prior to admission
Other Services VN,PT,OT,ST
Instructions:
Stand-Alone Forms:
Changes to Home Medications: Yes
Discharge Medications:
DC Medications w/original date entered in [employer]
atorvastatin 40 mg tablet 40 mg PO QPM High Cholesterol 01/24/23
diltiazem HCl 120 mg capsule,extended release 24 hr, controlled 120 mg PO DAILY Heart Disease/Condition 01/24/23
finasteride 5 mg tablet 5 mg PO DAILY Urinary Issue 01/24/23
multivitamin 1 cap PO DAILY Supplement 01/24/23
tamsulosin 0.4 mg capsule 0.4 mg PO QPM Urinary Issue 01/24/23
ascorbic acid (vitamin C) 500 mg tablet (Vitamin C) 500 mg PO DAILY Supplement 11/23/23
cetirizine 10 mg tablet 10 mg PO HS Allergies 11/23/23
cholecalciferol (vitamin D3) 50 mcg (2,000 unit) tablet (Vitamin D3) 50 mcg PO Q48H Supplement 11/23/23
magnesium 200 mg tablet 400 mg PO Q48H Electrolyte Repletion 11/23/23
meclizine 25 mg tablet 25 mg PO Q8HPRN PRN dizziness 11/23/23
vitamin B complex 1 tab PO DAILY Supplement 11/23/23
gabapentin 100 mg capsule 200 mg (2 x 100 mg) PO TID neuropathic pain #30 caps 12/24/23
rivaroxaban 20 mg tablet (Xarelto) 20 mg PO QPM Blood Clot Prevention/Tx #0 tabs 12/24/23
acetaminophen 500 mg tablet 1,000 mg PO TID Pain 02/05/24
amiodarone 200 mg tablet (Pacerone) 200 mg PO DAILY 02/05/24
amoxicillin 400 mg-potassium clavulanate 57 mg/5 mL oral suspension 10 ml PO BID Lung/breathing issues #100 mL 02/06/24
famotidine 10 mg tablet (Pepcid AC) 10 mg PO DAILY Gastrointestinal issue #0 tabs 02/06/24
lidocaine 4 % topical patch 1 patch topical DAILY Pain #0 ea 02/06/24
Home Medication Changes
new
amoxicillin 400 mg-potassium clavulanate 57 mg/5 mL oral suspension 10 ml PO BID Lung/breathing issues #100 mL 02/06/24
lidocaine 4 % topical patch 1 patch topical DAILY Pain #0 ea 02/06/24
Pending Results: No
[2024-02-06 15:00] VITALS: BP 120/67
== END 2024-02-06 15:34 | disposition home health service (06) ==
LOC: 3 WEST ACU 01:15
PROVIDERS: ADMITTING PHYSICIAN Hospitalist; ATTENDING PHYSICIAN Hospitalist; CONSULT PHYSICIAN Orthopaedic Surgery; EMERGENCY PHYSICIAN Emergency Medicine
DX: M25.552 Pain in left hip (principal); R05.9 Cough, unspecified; I48.21 Permanent atrial fibrillation; I10 Essential (primary) hypertension; E78.00 Pure hypercholesterolemia, unspecified; D72.829 Elevated white blood cell count, unspecified; K21.9 Gastro-esophageal reflux disease without esophagitis; N40.0 Benign prostatic hyperplasia without lower urinary tract symptoms; M19.90 Unspecified osteoarthritis, unspecified site; I71.20 Thoracic aortic aneurysm, without rupture, unspecified; G47.33 Obstructive sleep apnea (adult) (pediatric); D64.9 Anemia, unspecified; R91.8 Other nonspecific abnormal finding of lung field; K44.9 Diaphragmatic hernia without obstruction or gangrene; I95.1 Orthostatic hypotension; R73.03 Prediabetes; E66.9 Obesity, unspecified; I37.1 Nonrheumatic pulmonary valve insufficiency; I34.0 Nonrheumatic mitral (valve) insufficiency; F32.A Depression, unspecified; Z68.30 Body mass index [BMI] 30.0-30.9, adult; Z87.891 Personal history of nicotine dependence; Z86.73 Personal history of transient ischemic attack (TIA), and cerebral infarction without residual deficits; Z79.01 Long term (current) use of anticoagulants; Z87.19 Personal history of other diseases of the digestive system; Z96.642 Presence of left artificial hip joint; Z87.828 Personal history of other (healed) physical injury and trauma
CPT/HCPCS: 70450; 71046; 73502; 80048; 85025; 85027; 96374; 96375; 97162; 97166; 97530; 99284; G0378

== ENCOUNTER → 2024-03-01 13:04 | Outpatient (REF) | payer MEDICARE, OTHER, SELFPAY | LOC: HWRAD 13:04 | PROVIDERS: ATTENDING PHYSICIAN Internal Medicine | DX: J98.8 Other specified respiratory disorders (principal); J18.9 Pneumonia, unspecified organism | CPT/HCPCS: 71046 ==

== ENCOUNTER → 2024-03-27 17:01 | Outpatient (REF) | payer MEDICARE, OTHER, SELFPAY | LOC: PAVMRI 17:01 | PROVIDERS: ATTENDING PHYSICIAN Psychiatry & Neurology Neurology; FAMILY PHYSICIAN Internal Medicine | DX: R41.3 Other amnesia (principal) | CPT/HCPCS: 70551 ==

== ENCOUNTER → 2024-03-30 10:56 | Outpatient (REF) | payer MEDICARE, OTHER, SELFPAY | LOC: HWRAD 10:56 | PROVIDERS: ATTENDING PHYSICIAN Internal Medicine Critical Care Medicine; FAMILY PHYSICIAN Internal Medicine | DX: Z87.891 Personal history of nicotine dependence (principal) | CPT/HCPCS: 71271 ==

== ENCOUNTER → 2024-03-31 09:37 | Outpatient (REF) | payer MEDICARE, OTHER, SELFPAY | LOC: RST 09:37 | PROVIDERS: ATTENDING PHYSICIAN Internal Medicine | DX: J98.8 Other specified respiratory disorders (principal); I63.40 Cerebral infarction due to embolism of unspecified cerebral artery; I69.391 Dysphagia following cerebral infarction | CPT/HCPCS: 74230; 92611 ==

== ENCOUNTER → 2024-07-07 12:32 | Outpatient (REF) | payer MEDICARE, OTHER, SELFPAY | LOC: HWRCS 12:32 | PROVIDERS: ATTENDING PHYSICIAN Internal Medicine Cardiovascular Disease; FAMILY PHYSICIAN Internal Medicine | DX: R06.02 Shortness of breath (principal) | CPT/HCPCS: 93306 ==

== ENCOUNTER 2024-07-13 09:42 | Emergency (ER) | payer MEDICARE, OTHER, SELFPAY ==
[2024-07-13 09:47] VITALS: BP 136/84
--- NOTE | 2024-07-13 10:16 | ED.GENMED ---
History of Present Illness
General
Chief Complaint: Urinary Symptoms
Time Seen by Provider: 07/13/24 10:09
History of Present Illness
History of Present Illness:
78-year-old male history of atrial fibrillation on Xarelto, hypertension, hyperlipidemia, GERD presenting with brown to reddish colored urine for the past few days. Patient states that happened a few days ago but then resolved. Patient states that
it happened again this morning with associated right flank pain prompting ED evaluation. Patient denies nausea, vomiting, dysuria, fever or chills. Patient denies history of kidney stone. Patient states that he is still able to urinate with no
difficulty. No clots.
Past History
Past History
ED Past Medical History: Arrthythmia and CVA
ED Past Surgical History: None
Patient has exhibited threatening behavior?: No
PSI?: No
Social History
Tobacco: Non-smoker
Alcohol: Occasional
Drug: None
Personal:
Living: with family
Employment: Retired
Family History
Family History: Other (Noncontributory)
Phy Exam
Physical Exam
Physical Exam:
General: Alert, no acute distress
Head: NCAT
Eyes: clear conjunctiva
Neck: supple
Cardiac: regular rate, no murmur
Lungs: clear to auscultation bilaterally. No wheezes, rales, or rhonchi. Speaking full unlabored sentences. No respiratory distress.
Abdomen: soft, nondistended RLQ tenderness. Right CVA tenderness, no left CVA tenderness. No rebound or guarding.
MSK: no lower extremity edema bilaterally. No deformity
Skin: warm, dry
Neuro: Alert and oriented x3. no focal deficits
Course
Orders/Labs/Results
Orders:
Orders
07/13/24 10:15
Abdomen/Pelvis wo Contrast CT [CT Abd/pelvis Wo Iv Cont] Urgent
Comment:
Reason For Exam: right flank pain, hematuria
Acetaminophen [Tylenol] 1,000 mg PO NOW STA
07/13/24 10:16
0.9% Sodium Chloride 1000 ml [Nss] 1,000 ml IV BOLUS
07/13/24 10:31
CBC/With Diff [Complete Blood Count/With Diff] Urgent
CMP [Comprehensive Metabolic Panel] Urgent
07/13/24 12:07
UA Reflex to Culture [Urinalysis Reflex To Culture] Urgent
Date Specimen was Collected: 07/13/24
Time Specimen was Collected: 12:05
Urine Microscopic Reflex Cult Urgent
Abnormal Lab Results
07/13/24 07/13/24
10:31 12:07
RBC 4.53 L 10^6/uL
(4.70-6.10)
MCHC 32.5 L g/dL
(33.0-37.0)
RDW 15.5 H %
(11.5-14.5)
Absolute Monos (auto) 0.8 H 10^3/uL
(0.1-0.6)
Lymphocytes % 15.5 L %
(20.5-51.1)
Monocytes % 10.4 H %
(1.7-9.3)
BUN 23 H mg/dl
(9-20)
Glucose 113 H mg/dl
(70-99)
Ur Occult Blood Reflex 4+ A
(Negative)
Leukocyte Esterase Rfl Trace A
(Negative)
Urine RBC >100 A /HPF
(0-2)
Urine Albumin (Reflex) 1+ A
(Neg - Trace)
07/13/24 10:31
07/13/24 10:31
Vital Signs
Initial and Last Documented VS:
Initial Vital Signs
Temp Pulse Resp BP Pulse Ox
98.4 F 79 16 136/84 98
07/13/24 09:47 07/13/24 09:47 07/13/24 09:47 07/13/24 09:47 07/13/24 09:47
Last Documented Vital Signs
Temp Pulse Resp BP Pulse Ox
98.4 F 73 20 145/80 96
07/13/24 09:47 07/13/24 13:15 07/13/24 13:15 07/13/24 13:00 07/13/24 13:15
MDM/Problems Addressed
Differential Diagnosis Includes:
Kidney stone, UTI, appendicitis, pyelonephritis, PIA, electrolyte abnormality
MDM/Problems Addressed:
Labs reviewed. Hemoglobin 13.6. Creatinine 1 which is baseline. UA shows blood but no UTI. CT abdomen pelvis shows 5 mm proximal right ureteral calculus with associated mild right hydroureteronephrosis. as read by radiology
Discussed results with patient at bedside. Patient states that pain is improved. Patient states he is already on Flomax. Advised to continue taking Flomax as prescribed, drink lots of water, stable for discharge with urology follow-up. Discussed
return precautions. Offered opioids for severe pain, patient declines.
*Critical Care Note
Total Time (30-74mins, 75-104mins- exclusive of procedures): Not Applicable
ED Attending Note
-
Portions of this chart may have been created with voice recognition software.� Occasional wrong word or��sound alike� substitutions may have occurred due to the inherent limitations of voice recognition software.
Discharge Plan
Departure
Patient Disposition: Home (Routine Discharge)
Date of Disposition: 07/13/24
Time of Disposition: 13:06
Patient with high blood pressure during this ER visit?: Yes
Discharge Problem:
Ureterolithiasis
Instructions: Kidney Stone, Adult ED
Prescriptions:
No Action
atorvastatin 40 mg Tablet
40 mg PO QPM
tamsulosin 0.4 mg Capsule
0.4 mg PO QPM
diltiazem HCl 120 mg Capsule,Ext.Rel 24h Degradable
120 mg PO DAILY
multivitamin Capsule
1 cap PO DAILY
finasteride 5 mg Tablet
5 mg PO DAILY
cetirizine 10 mg Tablet
10 mg PO HS
ascorbic acid (vitamin C) [Vitamin C] 500 mg Tablet
500 mg PO DAILY
vitamin B complex Tablet
1 tab PO DAILY
magnesium 200 mg Tablet
400 mg PO Q48H
Patient Comments:
with cetirizine
cholecalciferol (vitamin D3) [Vitamin D3] 50 mcg (2,000 unit) Tablet
50 mcg PO Q48H
Patient Comments:
with magnesium
meclizine 25 mg tablet
25 mg PO Q8HPRN PRN (Reason: dizziness)
gabapentin 100 mg Capsule
200 mg PO TID Qty: 30 0RF
Xarelto 20 mg Tablet
20 mg PO QPM Qty: 0 0RF
amiodarone [Pacerone] 200 mg tablet
200 mg PO DAILY
acetaminophen 500 mg tablet
1,000 mg PO TID
Rx Instructions:
DO NOT exceed >4000 mg daily.
lidocaine 4 % Adhesive Patch,Medicated
1 patch topical DAILY Qty: 0 0RF
famotidine [Pepcid AC] 10 mg Tablet
10 mg PO DAILY Qty: 0 0RF
Patient Comments:
with dinner
amoxicillin-pot clavulanate 400-57 mg/5 mL suspension for reconstitution
10 ml PO BID Qty: 100 0RF
Referrals:
Kevyn Raygoza DO [Family Provider] -
Kev Mitchell MD [Active] -
Activity Restrictions/Additional Instructions:
Take Tylenol 975 mg every 6 hours as needed for pain
Follow-up with urology this week
Drink lots of water, stay hydrated
Return to the emergency department for fever, persistent vomiting or new/worsening symptoms
Interventions
Interventions:
*Risk Screen - Suicide Last Done: 07/13/24 09:47
*Neglect/Abuse Screening Last Done: 07/13/24 09:47
ED- Fall Risk Assessment Last Done: 07/13/24 10:23
*ED COVID-19 Vaccine History Last Done: 07/13/24 10:23
*Nursing Disposition Last Done: 07/13/24 13:30
ED-Male Genitourinary Assessment Last Done: 07/13/24 11:47
Discharge Date and Time
Discharge Date/Time: 07/13/24 13:30
Print Language: KOREAN
[2024-07-13 10:18] VITALS: BP 137/95
[2024-07-13] MEDS: TYLENOL 1000 MG PO (10:21)
[2024-07-13 10:22] VITALS: BMI 31.2
[2024-07-13 10:24] VITALS: BP 137/95
[2024-07-13] MEDS: NSS 1000 IV (10:32)
[2024-07-13 10:52] LABS: % Basophils 0.5 % (0-2); % Eosinophils 2.9 % (0-6); % Immature Granulocytes 0.4 % (0-0.5); % Lymphocytes 15.5 % (20.5-51.1); % Monocytes 10.4 % (1.7-9.3); % Neutrophils 70.3 % (42.2-75.2); Absolute Eosinophils 0.2 10^3/uL (0-0.7); Absolute Lymphocytes 1.2 10^3/uL (1.2-3.4); Absolute Monocytes 0.8 10^3/uL (0.1-0.6); Absolute Neutrophils 5.4 10^3/uL (1.4-6.5); Hematocrit 41.9 % (39.0-52.0); Hemoglobin 13.6 g/dL (13.0-18.0); Mean Corp Hgb Conc. 32.5 g/dL (33.0-37.0); Mean Corpuscular Volume 92.5 fL (80.0-94.0); Mean Platelet Volume 10.4 fL (7.4-10.4); Nucleated Red Blood Cells % 0 % (-); Platelet Count 210 10^3/uL (130-400); Red Blood Cell Count 4.53 10^6/uL (4.70-6.10); Red Cell Dist. Width 15.5 % (11.5-14.5); White Blood Cell Count 7.7 10^3/uL (4.8-10.8)
[2024-07-13 11:00] VITALS: BP 123/85
[2024-07-13 11:14] LABS: ALT (SGPT) 25 U/L (0-50); AST (SGOT) 33 U/L (17-59); Albumin 4.1 g/dl (3.5-5.0); Alkaline Phosphatase 88 U/L (38-126); Blood Urea Nitrogen 23 mg/dl (9-20); Calcium 8.9 mg/dl (8.4-10.2); Carbon Dioxide 29 mmol/L (22-30); Chloride 103 mmol/L (98-107); Estimated Creatinine Clearance 76 ml/min; Glucose 113 mg/dl (70-99); Potassium 4.4 mmol/L (3.5-5.1); Sodium 141 mmol/L (135-145); Total Bilirubin 0.7 mg/dl (0.2-1.3); Total Protein 6.3 g/dl (6.3-8.2); eGFR > 60.00
[2024-07-13 12:08] VITALS: BP 140/78
[2024-07-13 12:21] LABS: Urine Albumin 1+ (Neg - Trace); Urine Bilirubin Negative (Negative); Urine Character Slightly Cloudy (Clear); Urine Color Straw; Urine Glucose Negative (Negative); Urine Ketone Negative (Negative); Urine Leukocyte Trace (Negative); Urine Nitrite Negative (Negative); Urine Occult Blood 4+ (Negative); Urine Urobilinogen Negative (Neg - 1+); Urine pH 6.5 (5.0-9.0)
[2024-07-13 12:40] LABS: Urine Red Blood Cell >100 /HPF (0-2)
[2024-07-13 13:00] VITALS: BP 145/80
== END 2024-07-13 13:30 | disposition home or self-care (01) ==
LOC: EMR 09:42
PROVIDERS: EMERGENCY PHYSICIAN Emergency Medicine; FAMILY PHYSICIAN Internal Medicine
DX: N13.2 Hydronephrosis with renal and ureteral calculous obstruction (principal); I48.91 Unspecified atrial fibrillation; I10 Essential (primary) hypertension; E78.00 Pure hypercholesterolemia, unspecified; K21.9 Gastro-esophageal reflux disease without esophagitis; Z79.01 Long term (current) use of anticoagulants; Z86.73 Personal history of transient ischemic attack (TIA), and cerebral infarction without residual deficits
CPT/HCPCS: 99284; 96360; 74176; 80053; 81003; 81015; 85025

== ENCOUNTER → 2024-08-24 11:53 | Outpatient (REF) | payer MEDICARE, OTHER, SELFPAY ==
[2024-08-24 16:10] LABS: ALT (SGPT) 28 U/L (0-50); AST (SGOT) 39 U/L (17-59); Albumin 3.9 g/dl (3.5-5.0); Alkaline Phosphatase 86 U/L (38-126); Blood Urea Nitrogen 18 mg/dl (9-20); Calcium 9.2 mg/dl (8.4-10.2); Carbon Dioxide 31 mmol/L (22-30); Chloride 104 mmol/L (98-107); Glucose 113 mg/dl (70-99); HDL Cholesterol 75 mg/dl; LDL Cholesterol, Calculated 60 mg/dl; Potassium 4.3 mmol/L (3.5-5.1); Sodium 140 mmol/L (135-145); Total Bilirubin 0.6 mg/dl (0.2-1.3); Total Cholesterol 148 mg/dl (50-199); Total Protein 6.3 g/dl (6.3-8.2); Triglyceride 69 mg/dl (10-149); Very Low Density Lipoprotein 13 mg/dl (0-30); eGFR > 60.00
== END ==
LOC: HWRAD 11:53
PROVIDERS: ATTENDING PHYSICIAN Urology; FAMILY PHYSICIAN Internal Medicine; REFERRING PHYSICIAN Internal Medicine
DX: I10 Essential (primary) hypertension (principal); E78.5 Hyperlipidemia, unspecified; R73.9 Hyperglycemia, unspecified; N20.0 Calculus of kidney
CPT/HCPCS: 36415; 74018; 80053; 80061; 83036

== ENCOUNTER → 2024-09-01 13:26 | Outpatient (REF) | payer MEDICARE, OTHER, SELFPAY ==
[2024-09-01 17:16] LABS: Urine Albumin Trace (Neg - Trace); Urine Bilirubin Negative (Negative); Urine Character Clear (Clear); Urine Color Yellow; Urine Glucose Negative (Negative); Urine Ketone Negative (Negative); Urine Leukocyte Negative (Negative); Urine Nitrite Negative (Negative); Urine Occult Blood 2+ (Negative); Urine Specific Gravity 1.025 (<1.030); Urine Urobilinogen Negative (Neg - 1+)
[2024-09-01 18:57] LABS: Urine Red Blood Cell 30-40 /HPF (0-2); Urine White Cell 0-2 /HPF (0-5)
== END ==
LOC: CLAB 13:26
PROVIDERS: ATTENDING PHYSICIAN Urology
DX: N20.0 Calculus of kidney (principal)
CPT/HCPCS: 81003; 81015; 87086

== ENCOUNTER → 2024-09-07 10:41 | Outpatient (REF) | payer MEDICARE, OTHER, SELFPAY | LOC: HWRAD 10:41 | PROVIDERS: ATTENDING PHYSICIAN Urology; FAMILY PHYSICIAN Internal Medicine | DX: N20.0 Calculus of kidney (principal) | CPT/HCPCS: 74176 ==

== ENCOUNTER 2024-10-04 19:58 | Emergency (ER) | payer MEDICARE, OTHER, SELFPAY ==
[2024-10-04 19:58] VITALS: BMI 32.0
[2024-10-04 20:00] VITALS: BP 159/81
--- NOTE | 2024-10-04 21:30 | ED.GENMED ---
History of Present Illness
General
Chief Complaint: Fall
Source: patient
Exam Limitations: none
Time Seen by Provider: 10/04/24 21:16
Nursing documentation reviewed up to this point in time: agreed with
History of Present Illness
History of Present Illness:
Patient presents to ED secondary to persistent right-sided rib pain, after losing balance and hitting his rib against a metal railing. Denies any other injuries. Patient does take Xarelto chronically, including this evening. Denies difficulty
breathing. Denies nausea or vomiting.
Past History
Past History
ED Past Medical History: Arrthythmia and CVA
ED Past Surgical History: None
Patient has exhibited threatening behavior?: No
PSI?: No
Social History
Tobacco: Non-smoker
Alcohol: Occasional
Drug: None
Personal:
Living: with family
Employment: Retired
Family History
Family History: Other (Noncontributory)
Review of Systems
Review of Systems
Allergies reviewed?: Yes
All Other Systems: ROS reviewed and negative except as documented in HPI and ROS
Constitutional: Reports no symptoms
Respiratory: Reports no symptoms
Cardiac: Reports no symptoms
ABD/GI: Reports no symptoms
Musculoskeletal: Reports other (rib pain)
Skin: Reports no symptoms
Neurological: Reports no symptoms
Phy Exam
Physical Exam
Physical Exam:
Physical Exam
General: moderate painful distress, not acutely ill. afebrile
Head: nc/at. eomi
Neck: supple. normal range of motion.
Heart: s1/s2 regular rate and rhythm, no murmur.
Lungs: mild respiratory distress. clear bilaterally. moderate tenderness to palpation over right rib #8-10 along mid-clavicular line, without ecchymosis/swelling/erythema. no deformity noted
Abdomen: normal bowel sounds. not tender. no distention
Neuro: alert and oriented x 3. no focal neurological deficits
Skin: no rash
Psychiatric: well kept. interactive and cooperative
Extremities: no edema. no calf tenderness.
Course
Orders/Labs/Results
Orders:
Orders
10/04/24 21:19
Oxycodone/Acetaminophen [Percocet 5/325] 1 tablet PO NOW STA
CR Ribs-right 3 Vw W/pa Chest* Urgent
Comment:
Reason For Exam: trauma
10/04/24 22:46
Incentive Spirometry [Rx Incentive Spirometry] [RESP] Urgent
Frequency: q1h while awake
Vital Signs
Initial and Last Documented VS:
Initial Vital Signs
Temp Pulse Resp BP Pulse Ox
98.5 F 80 18 159/81 98
10/04/24 20:00 10/04/24 20:00 10/04/24 20:00 10/04/24 20:00 10/04/24 20:00
Last Documented Vital Signs
Temp Pulse Resp BP Pulse Ox
98.5 F 68 22 122/55 97
10/04/24 20:00 10/04/24 22:56 10/04/24 22:56 10/04/24 22:56 10/04/24 22:56
MDM/Problems Addressed
MDM/Problems Addressed:
X-ray: no acute findings.
Pt reports improvement after treatment with pain medication. Pt otherwise remains afebrile, hemodynamically stable, without sig. distress during observation. Discussed differential diagnosis including fracture vs contusion vs strain. Advised rest,
incentive spirometer use, along with close pmd f/u for re-evaluation, and consideration for return to ED with worsening symptoms.
Pt and family expressed understanding at time of discharge.
*Critical Care Note
Total Time (30-74mins, 75-104mins- exclusive of procedures): Not Applicable
ED Attending Note
-
Portions of this chart may have been created with voice recognition software.� Occasional wrong word or��sound alike� substitutions may have occurred due to the inherent limitations of voice recognition software.
Discharge Plan
Departure
Patient Disposition: Home (Routine Discharge)
Date of Disposition: 10/04/24
Time of Disposition: 22:44
Patient with high blood pressure during this ER visit?: Yes
Condition: Fair
Discharge Problem:
Contusion of rib
Instructions: Contusion (DC), How to use an incentive spirometer
Prescriptions:
New
oxycodone-acetaminophen [Percocet] 5-325 mg Tablet
1 tab PO Q6HPRN PRN (Reason: pain) Qty: 14 0RF
No Action
atorvastatin 40 mg Tablet
40 mg PO QPM
tamsulosin 0.4 mg Capsule
0.4 mg PO QPM
diltiazem HCl 120 mg Capsule,Ext.Rel 24h Degradable
120 mg PO DAILY
multivitamin Capsule
1 cap PO DAILY
finasteride 5 mg Tablet
5 mg PO DAILY
cetirizine 10 mg Tablet
10 mg PO HS
ascorbic acid (vitamin C) [Vitamin C] 500 mg Tablet
500 mg PO DAILY
vitamin B complex Tablet
1 tab PO DAILY
magnesium 200 mg Tablet
400 mg PO Q48H
Patient Comments:
with cetirizine
cholecalciferol (vitamin D3) [Vitamin D3] 50 mcg (2,000 unit) Tablet
50 mcg PO Q48H
Patient Comments:
with magnesium
meclizine 25 mg tablet
25 mg PO Q8HPRN PRN (Reason: dizziness)
gabapentin 100 mg Capsule
200 mg PO TID Qty: 30 0RF
Xarelto 20 mg Tablet
20 mg PO QPM Qty: 0 0RF
amiodarone [Pacerone] 200 mg tablet
200 mg PO DAILY
acetaminophen 500 mg tablet
1,000 mg PO TID
Rx Instructions:
DO NOT exceed >4000 mg daily.
lidocaine 4 % Adhesive Patch,Medicated
1 patch topical DAILY Qty: 0 0RF
famotidine [Pepcid AC] 10 mg Tablet
10 mg PO DAILY Qty: 0 0RF
Patient Comments:
with dinner
amoxicillin-pot clavulanate 400-57 mg/5 mL suspension for reconstitution
10 ml PO BID Qty: 100 0RF
Referrals:
Kevyn Raygoza I., DO [Family Provider] -
Activity Restrictions/Additional Instructions:
As discussed, please follow-up with your primary care physician for reevaluation next week. Your prescription has been sent electronically to [facility] pharmacy in [place].
Interventions
Interventions:
*Risk Screen - Suicide Last Done: 10/04/24 20:00
*General Assessment Last Done: 10/04/24 20:00
*Neglect/Abuse Screening Last Done: 10/04/24 20:00
*ED COVID-19 Vaccine History Last Done: 10/04/24 20:00
*Nursing Disposition Last Done: 10/04/24 23:33
ED-Musculoskeletal Assessment Last Done: 10/04/24 22:32
ED- Neurological Assessment Last Done: 10/04/24 22:32
ED-Skin Assessment Last Done: 10/04/24 22:32
Discharge Date and Time
Discharge Date/Time: 10/04/24 23:33
Print Language: SPANISH
[2024-10-04] MEDS: PERCOCET 5/325 1 TABLET PO (21:58)
[2024-10-04 22:56] VITALS: BP 122/55
== END 2024-10-04 23:33 | disposition home or self-care (01) ==
LOC: EMR 19:58
PROVIDERS: EMERGENCY PHYSICIAN Emergency Medicine; FAMILY PHYSICIAN Internal Medicine
DX: S20.219A Contusion of unspecified front wall of thorax, initial encounter (principal); W22.8XXA Striking against or struck by other objects, initial encounter; Z86.73 Personal history of transient ischemic attack (TIA), and cerebral infarction without residual deficits
CPT/HCPCS: 99283; 71101

== ENCOUNTER 2024-10-08 12:57 | Emergency (ER) | payer MEDICARE, OTHER, SELFPAY ==
[2024-10-08 13:06] VITALS: BP 108/73
--- NOTE | 2024-10-08 15:53 | ED.GENMED ---
History of Present Illness
General
Chief Complaint: Cough
Time Seen by Provider: 10/08/24 14:54
History of Present Illness
History of Present Illness:
78-year-old male with history of CVA, hypertension, hyperlipidemia, A-fib on Xarelto presenting to the emergency department for persistent cough. Patient reports he had a fall on 10/04, struck the right side of his rib. He had an x-ray that did not
show any acute abnormality. He reports since the fall has had increasing cough and production of mucus. Pain is worse with any type of cough or deep inspiration. He has been taking Percocet as needed for pain. Denies fever. Denies chest pain.
Denies abdominal pain or GI symptoms. Denies additional acute medical complaints
Past History
Past History
ED Past Medical History: Arrthythmia and CVA
ED Past Surgical History: None
Patient has exhibited threatening behavior?: No
PSI?: No
Social History
Tobacco: Non-smoker
Alcohol: Occasional
Drug: None
Personal:
Living: with family
Employment: Retired
Family History
Family History: Other (Noncontributory)
Phy Exam
Physical Exam
Physical Exam:
General: Well-appearing, no clinical signs of dehydration, nontoxic and in no acute distress
HEENT: protecting airway
Neck: appears supple
CV: Normal heart rate, regular rhythm
Resp: No accessory muscle use, no increased work of breathing, scattered rhonchi to the right lung field. Reproducible tenderness to the inferior rib angle of the anterior right ribs. No crepitus
Abd: Soft and non-distended, no tenderness to palpation
Extremities: No deformities, no swelling, no erythema
Neuro: alert, no focal neurologic deficit
: deferred
Rectal: deferred
Psych: Normal affect
Skin: Intact
Course
Orders/Labs/Results
Orders:
Orders
10/08/24 14:15
CXR2 [CR Chest - 2 Views ] Urgent
Comment:
Reason For Exam: cough
10/08/24 15:28
CT Chest W/o Iv Contrast Urgent
Comment:
Reason For Exam: R-rib pain, suspect fx, cough, possible PNA
10/08/24 15:47
COVID-19 Antigen Urgent
Source: Nasal Swab
Complete Blood Count/With Diff Urgent
Comprehensive Metabolic Panel Urgent
Influenza A+B Rapid Molecular Urgent
NANCY Source: Nasal Swab
Specimen Description:
10/08/24 18:19
Oxycodone/Acetaminophen [Percocet 5/325] 1 tablet PO NOW STA
Abnormal Lab Results
10/08/24
15:47
RBC 4.47 L 10^6/uL
(4.70-6.10)
MCHC 32.4 L g/dL
(33.0-37.0)
Absolute Monos (auto) 0.9 H 10^3/uL
(0.1-0.6)
Lymphocytes % 15.6 L %
(20.5-51.1)
Monocytes % 11.4 H %
(1.7-9.3)
BUN 23 H mg/dl
(9-20)
Total Protein 6.2 L g/dl
(6.3-8.2)
10/08/24 15:47
10/08/24 15:47
Vital Signs
Initial and Last Documented VS:
Initial Vital Signs
Temp Pulse Resp BP Pulse Ox
98.7 F 88 18 108/73 95
10/08/24 13:06 10/08/24 13:06 10/08/24 13:06 10/08/24 13:06 10/08/24 13:06
Last Documented Vital Signs
Temp Pulse Resp BP Pulse Ox
97.6 F 72 16 154/80 96
10/08/24 16:18 10/08/24 18:28 10/08/24 18:28 10/08/24 18:28 10/08/24 18:28
MDM/Problems Addressed
MDM/Problems Addressed:
78-year-old male presenting to the emergency department with worsening cough and congestion after a fall and subsequent right rib injury. Vital signs are normal.
On exam, patient is resting comfortably, no acute distress, no respiratory distress. On lung exam, scattered rhonchi to the right lung field. Suspect possible developing pneumonia. Chest x-ray obtained, without significant abnormality. Plan for
CT imaging for further assessment. Will also send COVID and flu. Will send screening laboratory analysis
18:20 -CT does show a subtle fracture to the right sixth rib consistent with patient's symptoms. There is a trace pleural effusion without significant pneumonia. However given worsening cough, high risk patient, will start an antibiotic.
Otherwise feel stable for discharge. Return precaution discussed and patient verbalized understanding
*Critical Care Note
Total Time (30-74mins, 75-104mins- exclusive of procedures): Not Applicable
ED Attending Note
-
Portions of this chart may have been created with voice recognition software.� Occasional wrong word or��sound alike� substitutions may have occurred due to the inherent limitations of voice recognition software.
Discharge Plan
Departure
Prescriptions:
No Action
atorvastatin 40 mg Tablet
40 mg PO QPM
tamsulosin 0.4 mg Capsule
0.4 mg PO QPM
diltiazem HCl 120 mg Capsule,Ext.Rel 24h Degradable
120 mg PO DAILY
multivitamin Capsule
1 cap PO DAILY
finasteride 5 mg Tablet
5 mg PO DAILY
cetirizine 10 mg Tablet
10 mg PO HS
ascorbic acid (vitamin C) [Vitamin C] 500 mg Tablet
500 mg PO DAILY
vitamin B complex Tablet
1 tab PO DAILY
magnesium 200 mg Tablet
400 mg PO Q48H
Patient Comments:
with cetirizine
cholecalciferol (vitamin D3) [Vitamin D3] 50 mcg (2,000 unit) Tablet
50 mcg PO Q48H
Patient Comments:
with magnesium
meclizine 25 mg tablet
25 mg PO Q8HPRN PRN (Reason: dizziness)
gabapentin 100 mg Capsule
200 mg PO TID Qty: 30 0RF
Xarelto 20 mg Tablet
20 mg PO QPM Qty: 0 0RF
amiodarone [Pacerone] 200 mg tablet
200 mg PO DAILY
acetaminophen 500 mg tablet
1,000 mg PO TID
Rx Instructions:
DO NOT exceed >4000 mg daily.
lidocaine 4 % Adhesive Patch,Medicated
1 patch topical DAILY Qty: 0 0RF
famotidine [Pepcid AC] 10 mg Tablet
10 mg PO DAILY Qty: 0 0RF
Patient Comments:
with dinner
amoxicillin-pot clavulanate 400-57 mg/5 mL suspension for reconstitution
10 ml PO BID Qty: 100 0RF
oxycodone-acetaminophen [Percocet] 5-325 mg Tablet
1 tab PO Q6HPRN PRN (Reason: pain) Qty: 14 0RF
Referrals:
Kevyn Raygoza I., DO [Family Provider] -
Interventions
Interventions:
*Risk Screen - Suicide Last Done: 10/08/24 16:18
*General Assessment Last Done: 10/08/24 16:18
*Neglect/Abuse Screening Last Done: 10/08/24 16:18
ED- Fall Risk Assessment Last Done: 10/08/24 16:18
*ED COVID-19 Vaccine History Last Done: 10/08/24 16:18
ED- Pulmonary Assessment Last Done: 10/08/24 16:18
ED-Psychological Assessment Last Done: 10/08/24 16:18
ED- Neurological Assessment Last Done: 10/08/24 16:18
ED- Cardiac Assessment Last Done: 10/08/24 16:18
ED Swallowing Screen Last Done: 10/08/24 16:18
Discharge Date and Time
Print Language: SAMI
[2024-10-08 15:58] VITALS: BMI 32.5
[2024-10-08 15:59] LABS: % Basophils 0.4 % (0-2); % Eosinophils 2.6 % (0-6); % Immature Granulocytes 0.4 % (0-0.5); % Lymphocytes 15.6 % (20.5-51.1); % Monocytes 11.4 % (1.7-9.3); % Neutrophils 69.6 % (42.2-75.2); Absolute Eosinophils 0.2 10^3/uL (0-0.7); Absolute Lymphocytes 1.3 10^3/uL (1.2-3.4); Absolute Monocytes 0.9 10^3/uL (0.1-0.6); Absolute Neutrophils 5.7 10^3/uL (1.4-6.5); Hematocrit 40.4 % (39.0-52.0); Hemoglobin 13.1 g/dL (13.0-18.0); Mean Corp Hgb Conc. 32.4 g/dL (33.0-37.0); Mean Corpuscular Hgb 29.3 pg (27.0-31.0); Mean Corpuscular Volume 90.4 fL (80.0-94.0); Mean Platelet Volume 9.7 fL (7.4-10.4); Nucleated Red Blood Cells % 0 % (-); Platelet Count 199 10^3/uL (130-400); Red Blood Cell Count 4.47 10^6/uL (4.70-6.10); White Blood Cell Count 8.2 10^3/uL (4.8-10.8)
[2024-10-08 16:18] VITALS: BP 126/75
[2024-10-08 16:20] LABS: COVID-19 Antigen Negative (Negative)
[2024-10-08 16:42] LABS: ALT (SGPT) 22 U/L (0-50); AST (SGOT) 31 U/L (17-59); Albumin 3.6 g/dl (3.5-5.0); Alkaline Phosphatase 92 U/L (38-126); Blood Urea Nitrogen 23 mg/dl (9-20); Calcium 9.4 mg/dl (8.4-10.2); Carbon Dioxide 27 mmol/L (22-30); Chloride 104 mmol/L (98-107); Estimated Creatinine Clearance 81 ml/min; Glucose 98 mg/dl (70-99); Potassium 4.1 mmol/L (3.5-5.1); Sodium 138 mmol/L (135-145); Total Bilirubin 0.9 mg/dl (0.2-1.3); Total Protein 6.2 g/dl (6.3-8.2); eGFR > 60.00
[2024-10-08 18:22] VITALS: BP 154/80
[2024-10-08] MEDS: PERCOCET 5/325 1 TABLET PO (18:24)
[2024-10-08 18:28] VITALS: BP 154/80
== END 2024-10-08 18:48 | disposition home or self-care (01) ==
LOC: EMR 12:57
PROVIDERS: EMERGENCY PHYSICIAN Student in an Organized Health Care Education/Training Program; FAMILY PHYSICIAN Internal Medicine
DX: S22.31XA Fracture of one rib, right side, initial encounter for closed fracture (principal); R05.9 Cough, unspecified; W19.XXXA Unspecified fall, initial encounter; I10 Essential (primary) hypertension; E78.00 Pure hypercholesterolemia, unspecified; I48.91 Unspecified atrial fibrillation; Z79.01 Long term (current) use of anticoagulants; Z86.73 Personal history of transient ischemic attack (TIA), and cerebral infarction without residual deficits
CPT/HCPCS: 99284; 71046; 71250; 80053; 85025; 87502; 87811

== ENCOUNTER → 2025-01-12 11:00 | Outpatient (REF) | payer MEDICARE, OTHER, SELFPAY | LOC: HWRCS 11:00 | PROVIDERS: ATTENDING PHYSICIAN Internal Medicine Cardiovascular Disease; FAMILY PHYSICIAN Internal Medicine | DX: R06.02 Shortness of breath (principal) | CPT/HCPCS: 93306 ==

== ENCOUNTER → 2025-02-26 11:03 | Outpatient (REF) | payer MEDICARE, OTHER, SELFPAY ==
[2025-02-26 15:35] LABS: Hematocrit 40.3 % (39.0-52.0); Hemoglobin 13.3 g/dL (13.0-18.0); Mean Corp Hgb Conc. 33.0 g/dL (33.0-37.0); Mean Corpuscular Volume 92.2 fL (80.0-94.0); Nucleated Red Blood Cells % 0 % (-); Platelet Count 249 10^3/uL (130-400); Red Cell Dist. Width 14.5 % (11.5-14.5)
[2025-02-26 15:43] LABS: ALT (SGPT) 21 U/L (0-50); AST (SGOT) 29 U/L (17-59); Albumin 4.1 g/dl (3.5-5.0); Alkaline Phosphatase 86 U/L (38-126); Blood Urea Nitrogen 25 mg/dl (9-20); Calcium 9.5 mg/dl (8.4-10.2); Carbon Dioxide 30 mmol/L (22-30); Chloride 108 mmol/L (98-107); Glucose 116 mg/dl (70-99); Potassium 4.3 mmol/L (3.5-5.1); Sodium 142 mmol/L (135-145); Total Protein 6.6 g/dl (6.3-8.2); eGFR > 60.00
[2025-02-27 08:25] LABS: Glycohemoglobin (HgbA1c) 6.3 % (4.0-5.6)
== END ==
LOC: HWLAB 11:03
PROVIDERS: ATTENDING PHYSICIAN Nurse Practitioner Family
DX: I48.21 Permanent atrial fibrillation (principal); D68.69 Other thrombophilia; G47.10 Hypersomnia, unspecified; Z79.01 Long term (current) use of anticoagulants; R73.03 Prediabetes; I10 Essential (primary) hypertension
CPT/HCPCS: 36415; 80053; 83036; 85025

== ENCOUNTER → 2025-04-10 11:14 | Outpatient (REF) | payer MEDICARE, OTHER, SELFPAY | LOC: HWRAD 11:14 | PROVIDERS: ATTENDING PHYSICIAN Internal Medicine Critical Care Medicine; FAMILY PHYSICIAN Internal Medicine | DX: Z87.891 Personal history of nicotine dependence (principal) | CPT/HCPCS: 71271 ==

== ENCOUNTER → 2025-05-23 11:41 | Outpatient (REF) | payer MEDICARE, OTHER, SELFPAY ==
[2025-05-23 18:03] LABS: Blood Urea Nitrogen 27 mg/dl (9-20); Calcium 9.3 mg/dl (8.4-10.2); Carbon Dioxide 31 mmol/L (22-30); Chloride 110 mmol/L (98-107); Glucose 127 mg/dl (70-99); Potassium 4.2 mmol/L (3.5-5.1); Sodium 145 mmol/L (135-145); eGFR > 60.00
== END ==
LOC: HWLAB 11:41
PROVIDERS: ATTENDING PHYSICIAN Internal Medicine Cardiovascular Disease; FAMILY PHYSICIAN Internal Medicine
DX: R06.02 Shortness of breath (principal)
CPT/HCPCS: 36415; 80048; 83880

== ENCOUNTER 2025-07-08 20:57 | Emergency (ER) | payer MEDICARE, OTHER, SELFPAY ==
[2025-07-08 20:58] VITALS: BP 160/82
[2025-07-08 21:07] VITALS: BMI 30.8
[2025-07-08 21:10] VITALS: BP 145/70
--- NOTE | 2025-07-08 22:24 | ED.GENMED ---
History of Present Illness
General
Chief Complaint: Fall
Source: patient and family
Exam Limitations: none
Nursing documentation reviewed up to this point in time: agreed with
History of Present Illness
History of Present Illness:
Note:
CHIEF COMPLAINT(S)
Fall with subsequent facial injury and shoulder discomfort.
HISTORY OF PRESENT ILLNESS
The patient is a 79-year-old male who presented after experiencing a fall at approximately 2:45 PM. He reports attending a play where, upon getting up to leave, he tripped over his foot while descending a slightly sloped ramp, leading to a fall. He
sustained a cut on the bridge of his nose. He was aware of bleeding from the nose which was extensive enough to notice on the floor. The patient notes a history of a previous stroke which seems to influence his current physical stability. He also
reports experiencing limited sensation on his left side as a residual effect from the stroke.
Current symptoms include shoulder discomfort, though preliminary x-ray results do not indicate any fractures. He also noted bleeding from the nose. Upon examination, a small clot was observed in the left nostril. The patient has been on blood
thinners for atrial fibrillation as indicated by his irregular heartbeat. He does not normally use a mobility aid but mentions having a cane at home.
EXTERNAL RECORDS REVIEWED
CT scans of the head and neck are reported as normal, with the radiologists findings confirming no acute abnormalities. An x-ray of the shoulder shows no fractures.
CHRONIC MEDICAL CONDITIONS SIGNIFICANTLY AFFECTING CARE
- History of stroke.
- Atrial fibrillation, currently managed with anticoagulation therapy.
SOCIAL DETERMINANTS AFFECTING HEALTH
The patient lives with his mother and mentions other family members living nearby, which provides a local support network.
PHYSICAL EXAM
General: Alert, interacting appropriately, no acute distress.
Head: Contusion noted on the bridge of the nose with a visible cut. A clot is present in the left nostril.
Neck: Supple with normal tracheal alignment.
Eye, Ears, Nose, Mouth, and Throat: Oral mucosa is moist, no additional injury apart from the nose noted.
Musculoskeletal: Tenderness noted in the right shoulder, no deformity. Normal range of motion consistent with minor disruption due to pain.
Neurological: Alert and oriented to person, place, time, and situation, some evidence of left-sided weakness consistent with stroke history.
PLAN
- Conduct an Electrocardiogram to monitor cardiac activity due to a history of atrial fibrillation and recent fall.
- Monitor the patients mobility and perform a walking test to assess stability.
- Provide instructions for direct pressure application in case of significant nose bleeding.
- Reassess for any need for medical interventions based on the EKG and walking test results.
- Make arrangements for safe discharge should tests remain non-concerning.
DIFFERENTIAL DIAGNOSIS
The Differential Diagnosis includes, in no particular order and is not limited to:
- Traumatic brain injury
- Facial fracture
- Cervical spine injury
- Subdural hematoma
- Soft tissue injury of the shoulder
- Myocardial contusion
- Acute on chronic subdural hematoma
- Post-stroke neurologic sequelae
- Epistaxis secondary to anticoagulation therapy
- Vestibular dysfunction
Disposition:
SUMMARY OF ENCOUNTER
The patient, a 79-year-old male with a history of a prior stroke, presented to the emergency department after experiencing a fall where he stumbled over his feet. He landed on the bridge of his nose approximately five hours before arrival, resulting
in nasal bleeding and a small, superficial laceration/abrasion on the bridge of the nose. The CT scan was negative for acute abnormalities. The patients epistaxis has resolved, and there is a clot in the left nostril. He also reported shoulder
discomfort, but there was no obvious osseous abnormality observed on examination, and he maintained full range of motion. The laceration was cleaned and sealed with Dermabond. The patient tolerated the procedure well, and his symptoms are currently
well-controlled.
DISPOSITION
Discharge.
ASSESSMENT
The patient experienced a fall resulting in facial injury and resolved epistaxis. He also reported shoulder discomfort but displayed full range of motion without acute osseous injury.
PLAN
Monitor for any recurrent bleeding and apply direct pressure if necessary. Follow up with primary care if symptoms persist or worsen.
INDEPENDENT REVIEW OF LABS AND INTERPRETATION OF TESTS
My independent interpretation of the CT scan shows negative results for acute abnormalities in the head and neck.
PATIENT EDUCATION AND COUNSELING
Patient was advised to monitor for any recurrent nasal bleeding and apply direct pressure if needed. He was informed about the signs and symptoms that would necessitate immediate medical attention.
MEDICATION RECONCILIATION
The patient is currently on apixaban (Eliquis) for atrial fibrillation.
MEDICAL DECISION MAKING
- Complexity of Data Reviewed: Chronic conditions affecting care include history of stroke and atrial fibrillation managed with anticoagulation therapy. Differential diagnosis includes potential traumatic brain injury, facial fracture, and soft
tissue injury of the shoulder among others.
- Data:
- Category 1: Non-emergency department records reviewed include CT scan showing negative results.
- Category 2: Clinical information obtained and verified with independent examination and interpretation of imaging.
- Risk: Consideration of Admission/Observation was evaluated, but given the reassurances from imaging and exam findings, the patient is deemed safe for outpatient management with close follow-up.
DIAGNOSIS
- Fall, unspecified (ICD-10 Code: W19)
- Epistaxis, resolved (ICD-10 Code: R04.0)
Past History
Past History
ED Past Medical History: Arrthythmia and CVA
ED Past Surgical History: None
Patient has exhibited threatening behavior?: No
PSI?: No
Social History
Tobacco: Non-smoker
Alcohol: Occasional
Drug: None
Personal:
Living: with family
Employment: Retired
Family History
Family History: Other (Noncontributory)
Phy Exam
Physical Exam
Physical Exam:
.
Course
Orders/Labs/Results
Orders:
Orders
07/08/25 21:16
CT Cervical Spine W/o Iv Contr Urgent
Reason For Exam: fall head strike
CT Head W/o Iv Contrast Urgent
Comment:
Reason For Exam: fall, head strike on thinners
CR Shoulder - Left Min 2 View* Urgent
Comment:
Reason For Exam: fall
07/08/25 22:17
EKG [Electrocardiogram (*1)] Urgent
Reason for Study: QTc Monitoring
EKG- Treatment ONCE
Vital Signs
Initial and Last Documented VS:
Initial Vital Signs
Temp Pulse Resp BP Pulse Ox
97.9 F 79 15 160/82 97
07/08/25 20:58 07/08/25 20:58 07/08/25 20:58 07/08/25 20:58 07/08/25 20:58
Last Documented Vital Signs
Temp Pulse Resp BP Pulse Ox
97.9 F 72 22 105/58 98
07/08/25 20:58 07/08/25 22:36 07/08/25 22:36 07/08/25 22:36 07/08/25 22:29
*Pulse Oximetry
SaO2: 98
Oxygen Mode of Delivery: Room air
Patient hypoxic: no
*Critical Care Note
Total Time (30-74mins, 75-104mins- exclusive of procedures): Not Applicable
ED Attending Note
-
Portions of this chart may have been created with voice recognition software.� Occasional wrong word or��sound alike� substitutions may have occurred due to the inherent limitations of voice recognition software.
Discharge Plan
Departure
Patient Disposition: Home (Routine Discharge)
Date of Disposition: 07/08/25
Time of Disposition: 22:24
Patient with high blood pressure during this ER visit?: Yes
Discharge Problem:
Fall, Acute anterior epistaxis, Musculoskeletal pain
Instructions: Laceration Repair With Glue (DC), Preventing falls in adults, Nosebleeds - ED (DC), BLOOD PRESSURE
Prescriptions:
No Action
atorvastatin 40 mg Tablet
40 mg PO QPM
tamsulosin 0.4 mg Capsule
0.4 mg PO QPM
diltiazem HCl 120 mg Capsule,Ext.Rel 24h Degradable
120 mg PO DAILY
multivitamin Capsule
1 cap PO DAILY
finasteride 5 mg Tablet
5 mg PO DAILY
cetirizine 10 mg Tablet
10 mg PO HS
ascorbic acid (vitamin C) [Vitamin C] 500 mg Tablet
500 mg PO DAILY
vitamin B complex Tablet
1 tab PO DAILY
magnesium 200 mg Tablet
400 mg PO Q48H
Patient Comments:
with cetirizine
cholecalciferol (vitamin D3) [Vitamin D3] 50 mcg (2,000 unit) Tablet
50 mcg PO Q48H
Patient Comments:
with magnesium
meclizine 25 mg tablet
25 mg PO Q8HPRN PRN (Reason: dizziness)
gabapentin 100 mg Capsule
200 mg PO TID Qty: 30 0RF
Xarelto 20 mg Tablet
20 mg PO QPM Qty: 0 0RF
amiodarone [Pacerone] 200 mg tablet
200 mg PO DAILY
acetaminophen 500 mg tablet
1,000 mg PO TID
Rx Instructions:
DO NOT exceed >4000 mg daily.
lidocaine 4 % Adhesive Patch,Medicated
1 patch topical DAILY Qty: 0 0RF
famotidine [Pepcid AC] 10 mg Tablet
10 mg PO DAILY Qty: 0 0RF
Patient Comments:
with dinner
amoxicillin-pot clavulanate 400-57 mg/5 mL suspension for reconstitution
10 ml PO BID Qty: 100 0RF
oxycodone-acetaminophen [Percocet] 5-325 mg Tablet
1 tab PO Q6HPRN PRN (Reason: pain) Qty: 14 0RF
doxycycline hyclate 100 mg capsule
100 mg PO BID 7 Days Qty: 14 0RF
Referrals:
Idalmis,Kevyn I., DO [Family Provider, Internal Medicine]
Activity Restrictions/Additional Instructions:
Thank You for choosing [facility].
It was a pleasure meeting you and taking part in your care. We hope for your continued healing and wellness.
Please read discharge instructions in their entirety. However, they are for general education and may not describe your exact diagnosis at discharge. Information on your ER visit and medical conditions were discussed with you along with appropriate
follow up information...
If indicated, please take your medications as instructed and indicated on discharge paperwork.
Please schedule a follow up appointment as directed. Call to schedule an appointment
Please return to the emergency department with ANY change in, persisting, or worsening of symptoms. If any of your symptoms do not improve, or persist, or become more severe within 6-12 hours, please return to the emergency department for further
care.
Please return to the emergency department if you develop a headache, neck pain/stiffness, fever greater than 100.4F, chest pain, shortness of breath, persistent nausea, vomiting, slurred speech, difficulty walking, numbness/tingling, weakness, signs
of infection or any other symptoms that are worrisome to you.
If you have any questions or concerns please do not hesitate to call the Hospital at .
Interventions
Interventions:
*Risk Screen - Suicide Last Done: 07/08/25 20:58
*General Assessment Last Done: 07/08/25 20:58
*Neglect/Abuse Screening Last Done: 07/08/25 20:58
*ED- Fall Risk Assessment Last Done: 07/08/25 21:07
*ED COVID-19 Vaccine History Last Done: 07/08/25 20:58
*ED Influenza Vaccine History Last Done: 07/08/25 20:58
*Nursing Disposition Last Done: 07/08/25 22:54
ED-Musculoskeletal Assessment Last Done: 07/08/25 21:07
ED- Neurological Assessment Last Done: 07/08/25 21:07
ED-Skin Assessment Last Done: 07/08/25 21:07
Discharge Date and Time
Discharge Date/Time: 07/08/25 22:55
Print Language: ARGENTINE
[2025-07-08 22:36] VITALS: BP 105/58
== END 2025-07-08 22:55 | disposition home or self-care (01) ==
LOC: EMR 20:57
PROVIDERS: EMERGENCY PHYSICIAN Student in an Organized Health Care Education/Training Program; FAMILY PHYSICIAN Internal Medicine
DX: R04.0 Epistaxis (principal); S00.33XA Contusion of nose, initial encounter; W10.2XXA Fall (on)(from) incline, initial encounter; M79.18 Myalgia, other site; I48.91 Unspecified atrial fibrillation; Z79.01 Long term (current) use of anticoagulants; I69.30 Unspecified sequelae of cerebral infarction
CPT/HCPCS: 99284; 70450; 72125; 73030; 93005